=== PATIENT | male | born 1965 | race Caucasian/White ===

== ENCOUNTER 2016-12-19 04:28 | Emergency (ER) | payer MEDICARE, OTHER ==
[~2016-12-19] VITALS: Ht 177.8 cm; Wt 71.9 kg
[~2016-12-19 04:28] MED LIST: BACL20TA PO; BACT800T5 PO; BAYEMIS; BUSP10 PO; CLIN1CAP6 PO; GABA800T PO; GLIP5 PO; GLUCOMETER XX; GLUCOMTESTSTRIPS XX; INSULINSYR2 XX; LEVEMIR SQ; METF-324 PO; MUPI2%T TOPICAL; NORV5TAB PO; NOVOLOGSS SQ
[2016-12-19 04:33] VITALS: BP 144/96; PULSE 122; RESP 24; TEMP 98.5; O2SAT 95
--- NOTE | 2016-12-19 04:52 | PD ---
HPI Chief Complaint: shortness of breath Time Seen by Provider: 04:40 Travel History International Travel<30 days: No Contact w/Intl Traveler<30days: No Traveled to known affect area: No History of Present Illness HPI Yesterday. He used to be a 4 pack a day smoker now down to one fourth pack a day. He denies any fever. He does have a cough productive of clear sputum. He states he ran out of his rescue inhaler. He does not have a nebulizer machine at home. He is followed by the [facility]. He does not get oxygen at home. PFSH Past Medical History Hx Anticoagulant Therapy: No Arthritis: Yes (lower back and bilat knees) Asthma: Yes Autoimmune Disease: No Anxiety: No Depression: Yes (PTSD-service related) Cancer: No Cardiovascular Problems: No Chemotherapy: No Cerebrovascular Accident: Yes (X 2007) Diabetes: Yes Diminished Hearing: No Endocrine: Yes Gastrointestinal Disorders: Yes Genitourinary: No Headaches: Yes Immune Disorder: No Implanted Vascular Access Dvce: No Musculoskeletal: Yes Neurologic: Yes Psychiatric: Yes Reproductive: Yes Respiratory: Yes Immunizations Current: No Past Surgical History Abdominal Surgery: Yes (gallbladder and appendectomy) Appendectomy: Yes Cardiac Surgery: No Cholecystectomy: Yes Ear Surgery: No Endocrine Surgery: No Eye Surgery: No Genitourinary Surgery: No Gynecologic Surgery: No Neurologic Surgery: No Oral Surgery: Yes (extraction) Thoracic Surgery: No Other Surgery: Yes (PILONIDAL CYST, BKA R SIDE) Social History Alcohol Use: Yes (DENIES) Tobacco Use: Yes (1 PPD) Substance Use: No Allergies-Medications (Allergen,Severity, Reaction): Coded Allergies: vancomycin (Unverified Adverse Reaction, Severe, Swelling, 09/24/16) KIDNEYS SHUT DOWN tuberculin, purified protein deriva (Unverified Adverse Reaction, Intermediate, OTHER, 09/24/16) + PPD, HAS GONE THRU MEDICATION REGIMEN SEV TIMES, LAST WAS IN 2012. *MDRO Multi-Drug Resistant Organism (Verified Adverse Reaction, Unknown, ) MRSA (leg wound) 12/2014 Reported Meds & Prescriptions Reported Meds & Active Scripts Active Prednisone 50 Mg Tab 50 Mg PO BID Proair Hfa 8.5 GM Inh (Albuterol Sulfate) 90 Mcg/Act Aer 2 Puff INH Q4-6H PRN 108 mcg/actuation Reported Baclofen 10 Mg Tab 10 Mg PO TID Glipizide 5 Mg Tab 5 Mg PO BIDAC Take 30 minutes before a meal Gabapentin 800 Mg Tab 1,200 Mg PO TID Metformin (Metformin HCl) 1,000 Mg Tab 1,000 Mg PO BIDPC Review of Systems Except as stated in HPI: all other systems reviewed are Neg Physical Exam Narrative GENERAL: The patient is alert, oriented 3 and slight respiratory distress. He smells strongly of tobacco. His vital signs show heart rate of 122, respirations of 24 with oximetry 95%. SKIN: Focused skin assessment warm/dry. HEAD: Atraumatic. Normocephalic. EYES: Pupils equal and round. No scleral icterus. No injection or drainage. ENT: No nasal bleeding or discharge. Mucous membranes pink and moist. NECK: Trachea midline. No JVD. CARDIOVASCULAR: Regular rate and rhythm. No murmur appreciated. RESPIRATORY: No accessory muscle use. Scattered wheezes are heard in all lung vasquez. Breath sounds equal bilaterally. GASTROINTESTINAL: Abdomen soft, non-tender, nondistended. Hepatic and splenic margins not palpable. MUSCULOSKELETAL: No obvious deformities. No clubbing. No cyanosis. No edema. NEUROLOGICAL: Awake and alert. No obvious cranial nerve deficits. Motor grossly within normal limits. Normal speech. PSYCHIATRIC: Appropriate mood and affect; insight and judgment normal. Data Data Last Documented VS Vital Signs Date Time Temp Pulse Resp B/P (MAP) Pulse Ox O2 Delivery O2 Flow Rate FiO2 12/19/16 05:36 98.3 102 24 174/90 (118) 94 Room Air Orders Orders Complete Blood Count With Diff (12/19/16 04:52) Comprehensive Metabolic Panel (12/19/16 04:52) B-Type Natriuretic Peptide (12/19/16 04:52) Troponin I (12/19/16 04:52) Arterial Blood Gas (Abg) (12/19/16 04:52) Iv Access Insert/Monitor (12/19/16 04:52) Electrocardiogram (12/19/16 04:52) Ecg Monitoring (12/19/16 04:52) Oximetry (12/19/16 04:52) Oxygen Administration (12/19/16 04:52) Chest, Pa & Lat (12/19/16 04:52) Sodium Chloride 0.9% Flush (Ns Flush) (12/19/16 05:00) Methylprednisolone So Succ Inj (Solumedr (12/19/16 05:00) Albuterol-Ipratropium Neb (Duoneb Neb) (12/19/16 05:00) Labs Laboratory Tests Test 12/19/16 04:55 12/19/16 05:35 White Blood Count 10.7 TH/MM3 Red Blood Count 4.53 MIL/MM3 Hemoglobin 13.7 GM/DL Hematocrit 40.5 % Mean Corpuscular Volume 89.4 FL Mean Corpuscular Hemoglobin 30.2 PG Mean Corpuscular Hemoglobin Concent 33.8 % Red Cell Distribution Width 12.3 % Platelet Count 331 TH/MM3 Mean Platelet Volume 8.1 FL Neutrophils (%) (Auto) 48.6 % Lymphocytes (%) (Auto) 29.8 % Monocytes (%) (Auto) 4.8 % Eosinophils (%) (Auto) 15.9 % Basophils (%) (Auto) 0.9 % Neutrophils # (Auto) 5.2 TH/MM3 Lymphocytes # (Auto) 3.2 TH/MM3 Monocytes # (Auto) 0.5 TH/MM3 Eosinophils # (Auto) 1.7 TH/MM3 Basophils # (Auto) 0.1 TH/MM3 CBC Comment DIFF FINAL Differential Comment Blood Urea Nitrogen 17 MG/DL Creatinine 1.80 MG/DL Random Glucose 202 MG/DL Total Protein 7.3 GM/DL Albumin 3.2 GM/DL Calcium Level 8.5 MG/DL Alkaline Phosphatase 66 U/L Aspartate Amino Transf (AST/SGOT) 9 U/L Alanine Aminotransferase (ALT/SGPT) 17 U/L Total Bilirubin 0.2 MG/DL Sodium Level 133 MEQ/L Potassium Level 4.8 MEQ/L Chloride Level 102 MEQ/L Carbon Dioxide Level 25.7 MEQ/L Anion Gap 5 MEQ/L Estimat Glomerular Filtration Rate 40 ML/MIN Troponin I LESS THAN 0.02 NG/ML B-Type Natriuretic Peptide 20 PG/ML Blood Gas Puncture Site LT BRACHIAL Blood Gas Patient Temperature 98.6 Blood Gas HCO3 24 mmol/L Blood Gas Base Excess -1.1 mmol/L Blood Gas Oxygen Saturation 87 % Arterial Blood pH 7.35 Arterial Blood Partial Pressure CO2 45 mmHG Arterial Blood Partial Pressure O2 63 mmHG Arterial Blood Oxygen Content 16.5 Vol % Arterial Blood Carboxyhemoglobin 4.5 % Arterial Blood Methemoglobin 1.5 % Blood Gas Hemoglobin 13.5 G/DL Blood Gas Inspired Oxygen 21 % MDM Medical Decision Making Medical Screen Exam Complete: Yes Emergency Medical Condition: Yes Medical Record Reviewed: Yes Interpretation(s) The blood gases show pH 7.35, CO2 45, O2 sat 87% and PO2 63%. The CBC is normal. The complete metabolic profile shows a sodium of 133, cranial 1.8, glucose 202 with a GFR of 40 and albumen 3.2. The BNP is normal and the troponin I is normal. The chest x-ray shows no acute change. Differential Diagnosis COPD with acute exacerbation, pneumonia, bronchitis, hypoxemia Narrative Course The patient initially refused IV and blood gases but then allowed us to do this. The patient has COPD with hypoxemia. We strongly wanted to admit this patient and we told him he needs oxygen but he refuses. The patient states he will follow-up with his primary care physician through the [facility]. Unfortunately, the patient probably lives on these blood gas values. He promises he will quit smoking. Diagnosis Primary Impression: COPD with acute exacerbation Additional Impression: Hypoxemia Additional Instructions: As we discussed, it is time to absolutely quit smoking. Follow-up with your doctor through the [facility]. If you get worse, we offered you admission tonight and we will likely admit you in the future if you are worse. The prednisone is taken one tablet twice daily for 4 days followed by one tablet once daily for 4 days. Med/Other Pt SpecificInfo: Prescription(s) given Scripts Prednisone (Prednisone) 50 Mg Tab 50 MG PO BID for X 4 days than 1 daily X 4 days, #12 TAB 0 Refills Prov: Jayy Eduardo MD 12/19/16 Albuterol 8.5 GM Inh (Proair Hfa 8.5 GM Inh) 90 Mcg/Act Aer 2 PUFF INH Q4-6H Y for SHORTNESS OF BREATH, #1 INHALER 0 Refills 108 mcg/actuation Prov: Jayy Eduardo MD 12/19/16 Disposition: 01 DISCHARGE HOME Condition: Stable Jayy Eduardo MD Dec 19, 2016 04:51
[2016-12-19] MEDS ORDERED: methylPREDNISolone SOD SUCC 125 MG/2 ML VIAL IV PUSH ONE (05:00)
[2016-12-19] MEDS ORDERED: SODIUM CHLORIDE 0.9% FLUSH 10 ML FLUSH IVF PRN (05:00)
[2016-12-19 05:06] LABS: AUTOMATED NEUTROPHIL # 5.2 TH/MM3 (1.8-7.7); BASOPHIL # 0.1 TH/MM3 (0-0.2); BASOPHIL % 0.9 % (0.0-2.0); EOSINOPHIL # 1.7 TH/MM3 (0-0.4); EOSINOPHIL % 15.9 % (0.0-4.0); HEMATOCRIT 40.5 % (39.0-51.0); HEMO FLAGS DIFF FINAL; LYMPH % 29.8 % (9.0-44.0); LYMPHOCYTE # 3.2 TH/MM3 (1.0-4.8); MEAN CELL VOLUME 89.4 FL (80.0-100.0); MEAN CORPUSCULAR HEMOGLOBIN 30.2 PG (27.0-34.0); MEAN CORPUSCULAR HGB CONC 33.8 % (32.0-36.0); MONO % 4.8 % (0.0-8.0); NEUT % 48.6 % (16.0-70.0); PLATELET COUNT 331 TH/MM3 (150-450); RED BLOOD COUNT 4.53 MIL/MM3 (4.50-5.90); RED CELL DISTRIBUTION WIDTH 12.3 % (11.6-17.2); WHITE BLOOD COUNT 10.7 TH/MM3 (4.0-11.0)
[2016-12-19] MEDS: RESP: ALBUTEROL 2.5 MG/IPRATROPIUM 0.5 MG NEB (SCH) INH (05:12)
[2016-12-19 05:15] VITALS: BP 139/78; PULSE 100; RESP 20; O2SAT 98
[2016-12-19 05:17] LABS: CHLORIDE 102 MEQ/L (98-107); POTASSIUM 4.8 MEQ/L (3.5-5.1); SODIUM (NA) 133 MEQ/L (136-145)
[2016-12-19 05:21] LABS: ANION GAP 5 MEQ/L (5-15); BICARBONATE 25.7 MEQ/L (21.0-32.0); BLOOD UREA NITROGEN 17 MG/DL (7-18)
[2016-12-19 05:24] LABS: ALT (GPT) 17 U/L (12-78); AST (GOT) 9 U/L (15-37); GLOMERULAR FILTRATION RATE 40 ML/MIN (>89)
[2016-12-19 05:25] LABS: TOTAL BILIRUBIN ADULT 0.2 MG/DL (0.2-1.0)
[2016-12-19 05:26] LABS: ALKALINE PHOSPHATASE 66 U/L (45-117)
[2016-12-19] MEDS ORDERED: BACL10TA PO (05:35)
[2016-12-19] MEDS ORDERED: GABA800T PO (05:35)
[2016-12-19] MEDS ORDERED: GLIP5TAB8 PO (05:35)
[2016-12-19] MEDS ORDERED: METF1000 PO (05:35)
[2016-12-19 05:36] VITALS: BP 174/90; PULSE 102; RESP 24; TEMP 98.3; O2SAT 94
[2016-12-19 05:42] LABS: BLOOD GAS BASE EXCESS -1.1 mmol/L (-2-2); BLOOD GAS CARBOXYHEMOGLOBIN 4.5 % (0-4); BLOOD GAS HCO3 24 mmol/L (22-26); BLOOD GAS METHEMOGLOBIN 1.5 % (0-2); BLOOD GAS O2 HGB SATURATION 87 % (90-100); BLOOD GAS OXYGEN CONTENT 16.5 Vol % (12.0-20.0); BLOOD GAS PCO2 45 mmHG (38-42); BLOOD GAS PO2 63 mmHG (61-120); BLOOD GAS TOTAL HGB 13.5 G/DL (12.0-16.0); CRITICAL VALUE YES; DRAW SITE LT BRACHIAL; FIO2 21 %; NUMBER OF ARTERIAL PUNCTURES 1; STAT YES; TEMP CORR TO 98.6
[2016-12-19] MEDS ORDERED: ALBUAER3 INH (06:08)
[2016-12-19] MEDS ORDERED: PRED50 PO (06:08)
--- NOTE | 2016-12-19 06:20 | RADRPT ---
EXAM DATE/TIME: 12/19/2016 05:04 [facility] COMPARISON: No previous studies available for comparison. INDICATIONS : Shortness of breath for 8 hours MEDICAL HISTORY : None. SURGICAL HISTORY : None. ENCOUNTER: Initial ACUITY: 1 day PAIN SCORE: 0/10 LOCATION: Bilateral chest FINDINGS: The cardiac silhouette is normal in transverse diameter. There is interstitial disease which may refl ect edema or pneumonia. No pleural effusions are identified. CONCLUSION: 1. Diffuse interstitial edema versus pneumonia Giovanny Lloyd MD on December 19, 2016 at 6:18 Board Certified Radiologist. This report was verified electronically.
[2016-12-19 06:46] VITALS: BP 144/86
--- NOTE | 2016-12-19 13:56 | EKG ---
Date Performed: 12/19/2016 Time Performed: 06:10:02 PTAGE: 51 years EKG: SINUS TACHYCARDIA WITH OCCASIONAL VENTRICULAR PREMATURE COMPLEXES ABNORMAL RHYTHM ECG Marky red to prior electrocardiogram, Premature ventricular contractions are now present PREVIOUS TRACING : 11/07/2014 21.28 DOCTOR: James Davidson Interpretating Date/Time 12/19/2016 13:54:45
== END 2016-12-19 06:51 | disposition home or self-care (01) ==
LOC: PHED 04:28
DX: J44.1 Chronic obstructive pulmonary disease with (acute) exacerbation (principal); R09.02 Hypoxemia; M46.96 Unspecified inflammatory spondylopathy, lumbar region; M13.862 Other specified arthritis, left knee; M13.861 Other specified arthritis, right knee; E11.9 Type 2 diabetes mellitus without complications; Z79.84 Long term (current) use of oral hypoglycemic drugs; F17.210 Nicotine dependence, cigarettes, uncomplicated; Z86.73 Personal history of transient ischemic attack (TIA), and cerebral infarction without residual deficits
CPT/HCPCS: 36600; 71020; 80053; 82805; 83880; 84484; 85025; 93005; 94640; 94664; 96374; 99285; J2930

== ENCOUNTER 2017-01-30 19:44 | Emergency (ER) | payer MEDICARE, OTHER ==
[~2017-01-30] VITALS: Ht 175.3 cm; Wt 65.9 kg
[~2017-01-30 19:44] MED LIST changes: +ALBUAER3 INH; +BACL10TA PO; -BACL20TA PO; -BACT800T5 PO; -BAYEMIS; -BUSP10 PO; -CLIN1CAP6 PO; -GLIP5 PO; +GLIP5TAB8 PO; -GLUCOMETER XX; -GLUCOMTESTSTRIPS XX; -INSULINSYR2 XX; -LEVEMIR SQ; -METF-324 PO; +METF1000 PO; -MUPI2%T TOPICAL; -NORV5TAB PO; -NOVOLOGSS SQ; +PRED50 PO
[2017-01-30 19:57] VITALS: BP 175/95; PULSE 112; RESP 22; TEMP 98.4; O2SAT 88
[2017-01-30 20:00] VITALS: PULSE 112; RESP 22; TEMP 98.4; O2SAT 91
[2017-01-30] MEDS ORDERED: SODIUM CHLORIDE 0.9% FLUSH 10 ML FLUSH IVF PRN (20:00)
[2017-01-30] MEDS ORDERED: methylPREDNISolone SOD SUCC 125 MG/2 ML VIAL IV PUSH ONE (20:00)
--- NOTE | 2017-01-30 20:00 | PD ---
HPI Chief Complaint: short of breath Time Seen by Provider: 19:51 Travel History International Travel<30 days: No Contact w/Intl Traveler<30days: No Traveled to known affect area: No History of Present Illness HPI This patient has history of COPD. He was doing some grinding all working on a wood floor and inhaled some vapors she says. He became short of breath. He is been coughing and wheezing. His nose is been running lately. Denies fever. He is a smoker. He says his dog chewed up his breathing inhaler and he does not have one. Symptoms are severe. No alleviating factors. Symptoms exacerbated by continued smoking. PFSH Past Medical History Hx Anticoagulant Therapy: No Arthritis: Yes (lower back and bilat knees) Asthma: Yes Autoimmune Disease: No Anxiety: No Depression: Yes (PTSD) Cancer: No Cardiovascular Problems: No Chemotherapy: No Cerebrovascular Accident: Yes (-2007) Diabetes: Yes Diminished Hearing: No Endocrine: Yes Gastrointestinal Disorders: Yes Genitourinary: No Headaches: Yes Immune Disorder: No Implanted Vascular Access Dvce: No Musculoskeletal: Yes Neurologic: Yes Psychiatric: Yes Reproductive: Yes Respiratory: Yes Immunizations Current: No Past Surgical History Abdominal Surgery: Yes Appendectomy: Yes Cardiac Surgery: No Cholecystectomy: Yes Ear Surgery: No Endocrine Surgery: No Eye Surgery: No Genitourinary Surgery: No Gynecologic Surgery: No Neurologic Surgery: No Oral Surgery: Yes (extraction) Thoracic Surgery: No Other Surgery: Yes (PILONIDAL CYST, BKA R SIDE) Social History Alcohol Use: Yes (DENIES) Tobacco Use: Yes (3.5 PPD) Substance Use: No Allergies-Medications (Allergen,Severity, Reaction): Coded Allergies: vancomycin (Verified Adverse Reaction, Severe, Swelling, 01/30/17) KIDNEYS SHUT DOWN tuberculin, purified protein deriva (Verified Adverse Reaction, Intermediate, OTHER, 01/30/17) + PPD, HAS GONE THRU MEDICATION REGIMEN SEV TIMES, LAST WAS IN 2012. *MDRO Multi-Drug Resistant Organism (Verified Adverse Reaction, Unknown, 01/30/17) MRSA (leg wound) 12/2014 Reported Meds & Prescriptions Reported Meds & Active Scripts Active Ventolin Hfa 18 GM Inh (Albuterol Sulfate) 90 Mcg/Act Aer 2 Puff INH Q4-6H PRN Prednisone 20 Mg Tab 40 Mg PO DAILY Take 40 mg (2 tablets) daily for 5 days Prednisone 50 Mg Tab 50 Mg PO BID Proair Hfa 8.5 GM Inh (Albuterol Sulfate) 90 Mcg/Act Aer 2 Puff INH Q4-6H PRN 108 mcg/actuation Reported Baclofen 10 Mg Tab 10 Mg PO TID Glipizide 5 Mg Tab 5 Mg PO BIDAC Take 30 minutes before a meal Gabapentin 800 Mg Tab 1,200 Mg PO TID Metformin (Metformin HCl) 1,000 Mg Tab 1,000 Mg PO BIDPC Review of Systems General / Constitutional: No: Fever Eyes: No: Visual changes HENT: Positive: Rhinorrhea, Congestion, No: Headaches Cardiovascular: No: Chest Pain or Discomfort Respiratory: Positive: Cough, Shortness of Breath, Wheezing Gastrointestinal: No: Abdominal Pain Genitourinary: No: Dysuria Musculoskeletal: No: Pain Skin: No Rash Neurologic: No: Weakness Psychiatric: No: Depression Endocrine: No: Polydipsia Hematologic/Lymphatic: No: Easy Bruising Physical Exam Narrative GENERAL: Well-nourished, well-developed patient in respiratory distress. SKIN: Focused skin assessment reveals no rash and nodules. Skin is Warm and dry. HEAD: Atraumatic. Normocephalic. EYES: Pupils equal and round. No scleral icterus. No injection or drainage. ENT: No nasal bleeding or discharge. Mucous membranes pink and moist. NECK: Trachea midline. No JVD. CARDIOVASCULAR: Regular rate and rhythm. No murmur appreciated. RESPIRATORY: Positive accessory muscle use. Diffuse expiratory wheezing and rhonchi . Breath sounds equal bilaterally. GASTROINTESTINAL: Abdomen soft, non-tender, nondistended. Hepatic and splenic margins not palpable. MUSCULOSKELETAL: Has lower extremity amputation and prosthesis. No clubbing. No cyanosis. No edema. NEUROLOGICAL: Awake and alert. No obvious cranial nerve deficits. Motor grossly within normal limits. Normal speech. PSYCHIATRIC: Appropriate mood and affect; insight and judgment poor . Data Data Last Documented VS Vital Signs Date Time Temp Pulse Resp B/P (MAP) Pulse Ox O2 Delivery O2 Flow Rate FiO2 01/30/17 20:07 22 91 Nasal Cannula 2.50 01/30/17 20:00 98.4 112 01/30/17 19:57 175/95 (121) Orders Orders Complete Blood Count With Diff (01/30/17 19:54) Basic Metabolic Panel (Bmp) (01/30/17 19:54) Influenzae A/B Antigen (01/30/17 19:54) Iv Access Insert/Monitor (01/30/17 19:54) Electrocardiogram (01/30/17 19:54) Ecg Monitoring (01/30/17 19:54) Oximetry (01/30/17 19:54) Oxygen Administration (01/30/17 19:54) Chest, Single Ap (01/30/17 19:54) Sodium Chloride 0.9% Flush (Ns Flush) (01/30/17 20:00) Methylprednisolone So Succ Inj (Solumedr (01/30/17 20:00) Albuterol-Ipratropium Neb (Duoneb Neb) (01/30/17 20:00) Labs Laboratory Tests Test 01/30/17 20:00 White Blood Count 12.9 TH/MM3 Red Blood Count 4.84 MIL/MM3 Hemoglobin 14.1 GM/DL Hematocrit 42.9 % Mean Corpuscular Volume 88.5 FL Mean Corpuscular Hemoglobin 29.2 PG Mean Corpuscular Hemoglobin Concent 33.0 % Red Cell Distribution Width 12.1 % Platelet Count 370 TH/MM3 Mean Platelet Volume 8.8 FL Neutrophils (%) (Auto) 62.3 % Lymphocytes (%) (Auto) 17.0 % Monocytes (%) (Auto) 6.7 % Eosinophils (%) (Auto) 11.3 % Basophils (%) (Auto) 2.7 % Neutrophils # (Auto) 8.0 TH/MM3 Lymphocytes # (Auto) 2.2 TH/MM3 Monocytes # (Auto) 0.9 TH/MM3 Eosinophils # (Auto) 1.5 TH/MM3 Basophils # (Auto) 0.3 TH/MM3 CBC Comment DIFF FINAL Differential Comment Blood Urea Nitrogen 15 MG/DL Creatinine 1.50 MG/DL Random Glucose 154 MG/DL Calcium Level 9.0 MG/DL Sodium Level 134 MEQ/L Potassium Level 5.1 MEQ/L Chloride Level 100 MEQ/L Carbon Dioxide Level 27.5 MEQ/L Anion Gap 7 MEQ/L Estimat Glomerular Filtration Rate 49 ML/MIN MDM Medical Decision Making Medical Screen Exam Complete: Yes Emergency Medical Condition: Yes Medical Record Reviewed: Yes Differential Diagnosis Differential diagnosis includes COPD, asthma, pneumonia, bronchitis, PE. Narrative Course I have reviewed the patient's electronic medical record. Patient was here in December 2016 for COPD The patient arrives critically ill. He is hypoxic and dyspneic with saturation of 88 percent on room air IV placed I gave him a series of 3 nebulizer treatments I gave him IV Solu-Medrol Placed him on oxygen Extended cardiac monitoring reveals sinus tachycardia I reviewed his EKG which shows sinus rhythm but no ectopy or ST elevation CBC reasonably normal Metabolic profile shows mild renal insufficiency After the above treatments patient has significantly improved He now has room air saturations in the upper 90s He still has some residual wheeze but much improved No longer critically ill and actually at this point he wants to go home. He has made a rather profound and rapid turnaround He needs to quit smoking I prescribed him an inhaler and 5 days of prednisone Critical Care Narrative Aggregate critical care time was 36 minutes. Time to perform other separately billable procedures was not included in the critical care time. My time did not include minutes spent treating any other patients simultaneously or on activities that did not directly contribute to the patient's treatment. The services I provided to this patient were to treat and/or prevent clinically significant deterioration that could result in: Cardiopulmonary arrest, hypoxemic brain injury, respiratory failure I provided critical care services requiring my management, as noted below: Chart data review, documentation time, medication orders and management, vital sign assessments/reviewing monitor data, ordering and reviewing lab tests, ordering and interpreting/reviewing x-rays and diagnostic studies, care of the patient and discussion of the patient with the admitting physicians. Diagnosis Primary Impression: COPD suggested by initial evaluation Additional Impression: Acute respiratory failure with hypoxia Additional Instructions: The patient was advised to follow up with their physician and return if they worsen. Med/Other Pt SpecificInfo: Prescription(s) given Scripts Albuterol 18 GM Inh (Ventolin Hfa 18 GM Inh) 90 Mcg/Act Aer 2 PUFF INH Q4-6H Y for SHORTNESS OF BREATH, #1 INHALER 0 Refills Prov: Jerome Bonner MD 01/30/17 Prednisone (Prednisone) 20 Mg Tab 40 MG PO DAILY, #10 TAB 0 Refills Take 40 mg (2 tablets) daily for 5 days Prov: Jerome Bonner MD 01/30/17 Disposition: 01 DISCHARGE HOME Condition: Stable Jerome Bonner MD Jan 30, 2017 19:59
[2017-01-30 20:02] VITALS: O2SAT 94
[2017-01-30] MEDS: RESP: ALBUTEROL 2.5 MG/IPRATROPIUM 0.5 MG NEB (SCH) INH ×3 (20:02→20:21)
[2017-01-30 20:15] LABS: BASOPHIL # 0.3 TH/MM3 (0-0.2); BASOPHIL % 2.7 % (0.0-2.0); EOSINOPHIL # 1.5 TH/MM3 (0-0.4); EOSINOPHIL % 11.3 % (0.0-4.0); HEMATOCRIT 42.9 % (39.0-51.0); HEMOGLOBIN 14.1 GM/DL (13.0-17.0); LYMPHOCYTE # 2.2 TH/MM3 (1.0-4.8); MEAN CELL VOLUME 88.5 FL (80.0-100.0); MEAN CORPUSCULAR HEMOGLOBIN 29.2 PG (27.0-34.0); MEAN PLATELET VOLUME 8.8 FL (7.0-11.0); MONO % 6.7 % (0.0-8.0); MONOCYTE # 0.9 TH/MM3 (0-0.9); NEUT % 62.3 % (16.0-70.0); PLATELET COUNT 370 TH/MM3 (150-450); RED BLOOD COUNT 4.84 MIL/MM3 (4.50-5.90); RED CELL DISTRIBUTION WIDTH 12.1 % (11.6-17.2); WHITE BLOOD COUNT 12.9 TH/MM3 (4.0-11.0)
--- NOTE | 2017-01-30 20:27 | RADRPT ---
EXAM DATE/TIME: 01/30/2017 19:59 [facility] COMPARISON: No previous studies available for comparison. INDICATIONS : Short of breath since this afternoon. MEDICAL HISTORY : Diabetes mellitus type 2. Methicillin-resistant Staphylococcus aureus SURGICAL HISTORY : Appendectomy. Cholecystectomy. BELOW KNEE AMPUTATION ENCOUNTER: Initial ACUITY: 1 day PAIN SCORE: 0/10 LOCATION: Bilateral chest FINDINGS: A single view of the chest demonstrates the lungs to be symmetrically aerated without evidence of mas s, infiltrate or effusion. The cardiomediastinal contours are unremarkable. Osseous structures are intact. CONCLUSION: The lungs are clear. Aren Jeong MD on January 30, 2017 at 20:25 Board Certified Radiologist. This report was verified electronically.
[2017-01-30 20:33] LABS: BICARBONATE 27.5 MEQ/L (21.0-32.0)
[2017-01-30 20:36] LABS: CREATININE 1.5 MG/DL (0.60-1.30)
[2017-01-30] MEDS ORDERED: PRED20 PO (20:47)
[2017-01-30] MEDS ORDERED: VENTAER INH (20:47)
[2017-01-30 21:03] VITALS: BP 127/76
--- NOTE | 2017-01-31 11:48 | EKG ---
Date Performed: 01/31/2017 Time Performed: 12:09:43 PTAGE: 51 years EKG: Sinus rhythm POSSIBLE LEFT ATRIAL ENLARGEMENT BORDERLINE ECG Compared to the PREVIOUS TRACING from 12/19/16, no significant change DOCTOR: Adeel Casey Interpretating Date/Time 01/31/2017 11:46:29
== END 2017-01-30 21:11 | disposition home or self-care (01) ==
LOC: PHED 19:44
DX: J44.9 Chronic obstructive pulmonary disease, unspecified (principal); J96.01 Acute respiratory failure with hypoxia; R94.31 Abnormal electrocardiogram [ECG] [EKG]; F32.9 Major depressive disorder, single episode, unspecified; E11.9 Type 2 diabetes mellitus without complications; F43.10 Post-traumatic stress disorder, unspecified; M46.96 Unspecified inflammatory spondylopathy, lumbar region; Z86.73 Personal history of transient ischemic attack (TIA), and cerebral infarction without residual deficits; F17.210 Nicotine dependence, cigarettes, uncomplicated; Z79.84 Long term (current) use of oral hypoglycemic drugs
CPT/HCPCS: 71010; 80048; 85025; 87804; 93005; 94640; 94664; 96374; 99291; J2930

== ENCOUNTER 2017-02-07 20:08 | Emergency (ER) | payer MEDICARE, MEDICAID ==
[~2017-02-07] VITALS: Ht 175.3 cm; Wt 71.1 kg
[~2017-02-07 20:08] MED LIST changes: +PRED20 PO; +VENTAER INH
[2017-02-07 20:10] VITALS: BP 160/90; PULSE 101; RESP 18; TEMP 98.3
--- NOTE | 2017-02-07 20:47 | PD ---
HPI Chief Complaint: Injury Time Seen by Provider: 20:30 Travel History International Travel<30 days: No Contact w/Intl Traveler<30days: No Traveled to known affect area: No History of Present Illness HPI 51-year-old male with pain and bleeding from the stump of his right below-knee amputation. He reports 6 days ago while ambulating with a walker he had a mechanical fall and had direct impact with the stump on the floor. Caused a small laceration which has continued to bleed since injury. He denies fever or chills. Today was the first day that he attempted to wear his prosthetic and noticed it caused him pain prompted his visit to the ER. PFSH Past Medical History Hx Anticoagulant Therapy: No Arthritis: Yes (lower back and bilat knees) Asthma: Yes Autoimmune Disease: No Anxiety: No Depression: Yes (PTSD) Cancer: No Cardiovascular Problems: Yes (HTN) Chemotherapy: No Cerebrovascular Accident: Yes (-2007) Diabetes: Yes Diminished Hearing: No Endocrine: Yes Gastrointestinal Disorders: Yes Genitourinary: No Headaches: Yes Immune Disorder: No Implanted Vascular Access Dvce: No Musculoskeletal: Yes Neurologic: Yes Psychiatric: Yes Reproductive: Yes Respiratory: Yes Immunizations Current: No Past Surgical History Abdominal Surgery: Yes Appendectomy: Yes Cardiac Surgery: No Cholecystectomy: Yes Ear Surgery: No Endocrine Surgery: No Eye Surgery: No Genitourinary Surgery: No Gynecologic Surgery: No Neurologic Surgery: No Oral Surgery: Yes (extraction) Thoracic Surgery: No Other Surgery: Yes (PILONIDAL CYST, BKA R SIDE) Social History Alcohol Use: No (DENIES) Tobacco Use: Yes (3.5 PPD) Substance Use: No Allergies-Medications (Allergen,Severity, Reaction): Coded Allergies: duloxetine (Verified Allergy, Severe, Urinary Freq (Inc/Dec), 02/07/17) vancomycin (Verified Adverse Reaction, Severe, Swelling, 02/07/17) KIDNEYS SHUT DOWN tuberculin, purified protein deriva (Verified Adverse Reaction, Intermediate, OTHER, 02/07/17) + PPD, HAS GONE THRU MEDICATION REGIMEN SEV TIMES, LAST WAS IN 2012. *MDRO Multi-Drug Resistant Organism (Verified Adverse Reaction, Unknown, 02/07/17) MRSA (leg wound) 12/2014 Reported Meds & Prescriptions Reported Meds & Active Scripts Active Ventolin Hfa 18 GM Inh (Albuterol Sulfate) 90 Mcg/Act Aer 2 Puff INH Q4-6H PRN Proair Hfa 8.5 GM Inh (Albuterol Sulfate) 90 Mcg/Act Aer 2 Puff INH Q4-6H PRN 108 mcg/actuation Reported Baclofen 10 Mg Tab 10 Mg PO TID Glipizide 5 Mg Tab 5 Mg PO BIDAC Take 30 minutes before a meal Gabapentin 800 Mg Tab 1,200 Mg PO TID Metformin (Metformin HCl) 1,000 Mg Tab 1,000 Mg PO BIDPC Review of Systems Except as stated in HPI: all other systems reviewed are Neg General / Constitutional: No: Fever Eyes: No: Visual changes HENT: No: Headaches Respiratory: No: Shortness of Breath Gastrointestinal: No: Abdominal Pain Genitourinary: No: Dysuria Physical Exam Narrative GENERAL: Alert male. Nontoxic appearing. SKIN: Focused skin assessment: <1CM superficial laceration to the distal aspect of the right lower extremity. The wound has very minimal bleeding. Mild erythema. Mildly tender. No crepitus, induration, fluctuance. HEAD: Normocephalic. Atraumatic EYES: No injection or drainage. NECK: Supple, trachea midline. CARDIOVASCULAR: Regular rate and rhythm RESPIRATORY: Breath sounds equal bilaterally. No accessory muscle use. GASTROINTESTINAL: Abdomen soft, non-tender, nondistended. MUSCULOSKELETAL: No cyanosis, or edema. Right lower extremity: Amputated below the knee. See skin noted above. No bony tenderness. Data Data Last Documented VS Vital Signs Date Time Temp Pulse Resp B/P (MAP) Pulse Ox O2 Delivery O2 Flow Rate FiO2 02/07/17 20:10 98.3 101 18 160/90 (113) Orders Orders Tibia/Fibula (Ap/Lat) (02/07/17 ) [facility] Medical Decision Making Medical Screen Exam Complete: Yes Emergency Medical Condition: Yes Differential Diagnosis Laceration, Wound infection, tib-fib fracture, osteomyelitis Narrative Course 51 -year-old male here with pain at the site of the laceration to his right lower extremity. He denies fever or chills. On exam he has a small less than 1 cm facial wound to the distal aspect of his right lower extremity at the site of his amputation. He denies fever or chills. No purulent drainage from the wound. Today was the first day he attempted to where his prosthetic caused pain. His vital signs are stable. He is nontoxic-appearing. X-ray right lower extremity: Negative for fracture. NO radiopaque foreign body. No gas in the soft tissue. Patient is a diabetic. His right BKA was a result of gangrenous diabetic foot wounds. Patient will be treated for wound infection with clindamycin. He is instructed to follow-up with his primary doctor for recheck on Friday. He is to return prior if he develops new or worsening symptoms Diagnosis Primary Impression: Laceration of right lower extremity Qualified Codes: S81.811A - Laceration without foreign body, right lower leg, initial encounter Referrals: Primary Care Physician Additional Instructions: Take the antibiotic as prescribed. Watch the area daily with soap and water. Apply clean dry dressing daily. Do not where the prosthetic until the area is not painful. Follow-up with her primary doctor for recheck on Friday. Return if he developed new or worsening symptoms Scripts Clindamycin (Clindamycin) 300 Mg Cap 300 MG PO Q6H for Infection for 10 Days, #40 CAP 0 Refills Prov: Viola Gomez 02/07/17 Disposition: DISCHARGE HOME Condition: Stable Viola Gomez Feb 07, 2017 20:47
--- NOTE | 2017-02-07 20:57 | RADRPT ---
EXAM DATE/TIME: 02/07/2017 20:37 [facility] COMPARISON: TIBIA/FIBULA RIGHT (AP/LAT), January 17, 2015, 16:23. INDICATIONS : Laceration to the bottom of the right tibia/fibula amputation post fall. MEDICAL HISTORY : Diabetes mellitus type II. Chronic obstructive pulmonary disease. Methicillin-resistant Staphylo coccus aureus SURGICAL HISTORY : Colostomy. Appendectomy. Below knee right extremity amputate ENCOUNTER: Initial ACUITY: 1 week PAIN SCORE: 8/10 LOCATION: Right tibia/fibula FINDINGS: Limited AP and lateral views of the right tibia and fibula were obtained including the knee. This dem onstrates that the patient is status post stable below the knee amputation with no acute fracture or malalignment. There is diffuse osteopenia. The knee is preserved. There is no focal soft tissue abnor mality. CONCLUSION: 1. Negative trauma study 2. Stable below the knee amputation. Ramone Genao MD on February 07, 2017 at 20:53 Board Certified Radiologist. This report was verified electronically.
[2017-02-07] MEDS ORDERED: CLIN300C5 PO (21:08)
[2017-02-07] MEDS ORDERED: CLINDAMYCIN 150 MG CAP PO ONE (21:15)
== END 2017-02-07 21:24 | disposition home or self-care (01) ==
LOC: PHEFT 20:08
DX: S81.811A Laceration without foreign body, right lower leg, initial encounter (principal); E11.9 Type 2 diabetes mellitus without complications; I10 Essential (primary) hypertension; J44.9 Chronic obstructive pulmonary disease, unspecified; F32.9 Major depressive disorder, single episode, unspecified; F43.10 Post-traumatic stress disorder, unspecified; F17.200 Nicotine dependence, unspecified, uncomplicated; Z89.511 Acquired absence of right leg below knee; Z86.73 Personal history of transient ischemic attack (TIA), and cerebral infarction without residual deficits
CPT/HCPCS: 73590; 99283

== ENCOUNTER 2017-03-05 22:09 | Inpatient (IN) | payer MEDICARE, OTHER ==
[~2017-03-05] VITALS: Ht 172.7 cm; Wt 65.1 kg
[~2017-03-05 22:09] MED LIST changes: +CLIN300C5 PO; -PRED20 PO; -PRED50 PO
[2017-03-05 22:13] VITALS: BP 161/91; PULSE 130; RESP 22; TEMP 98.8; O2SAT 89
[2017-03-05 22:19] VITALS: BP 130/72; PULSE 128; RESP 22; O2SAT 92
[2017-03-05 22:24] VITALS: BP 130/72; PULSE 126; RESP 22; O2SAT 92
--- NOTE | 2017-03-05 22:28 | PD ---
HPI Chief Complaint: Respiratory Distress Time Seen by Provider: 22:12 Travel History International Travel<30 days: No Contact w/Intl Traveler<30days: No Traveled to known affect area: No History of Present Illness HPI Patient is a 51-year-old male who is a former 4 pack-a-day smoker who now smokes only a pack a day. He comes to the ER because the last few days he's had a progressive cough shortness of breath. He has had a upper respiratory infection with a cold he says. He had only recently been diagnosed as COPD about a month ago when he came to our ER and was diagnosed admitted and started on prednisone. Now he says he does not have an HFA inhaler his albuterol has run out about 2 days ago. He was called the paramedics they found him to be descending to 81% on room air. They gave him 3 DuoNeb's en route 125 Solu- Medrol and he arrives tachycardic and still desatted to about 88% on room air he is put on 2 L nasal cannula holding his satting around 93 he is still tachycardic most likely from all the albuterol he is stable awake alert conversant no signs of distress nontoxic-appearing he has not seen another doctor since he saucy month ago for the same illness. And his albuterol he did not take because he has run out of his HFA [facility] Past Medical History Hx Anticoagulant Therapy: No Arthritis: Yes (lower back and bilat knees) Asthma: Yes Autoimmune Disease: No Anxiety: No Depression: Yes (PTSD) Cancer: No Cardiovascular Problems: Yes (HTN) Chemotherapy: No Cerebrovascular Accident: Yes () Diabetes: Yes Patient Takes Glucophage: Yes Diminished Hearing: No Endocrine: Yes Gastrointestinal Disorders: Yes Genitourinary: No Headaches: Yes Hypertension: Yes Immune Disorder: No Implanted Vascular Access Dvce: No Musculoskeletal: Yes Neurologic: Yes Psychiatric: Yes Reproductive: Yes Respiratory: Yes Immunizations Current: No Past Surgical History Abdominal Surgery: Yes Appendectomy: Yes Cardiac Surgery: No Cholecystectomy: Yes Ear Surgery: No Endocrine Surgery: No Eye Surgery: No Genitourinary Surgery: No Gynecologic Surgery: No Neurologic Surgery: No Oral Surgery: Yes (extraction) Thoracic Surgery: No Other Surgery: Yes (PILONIDAL CYST, BKA R SIDE) Social History Alcohol Use: No Tobacco Use: Yes (1+ PPD) Substance Use: No Allergies-Medications (Allergen,Severity, Reaction): Coded Allergies: duloxetine (Verified Allergy, Severe, Urinary Freq (Inc/Dec), 03/05/17) vancomycin (Verified Adverse Reaction, Severe, Swelling, 03/05/17) KIDNEYS SHUT DOWN tuberculin, purified protein deriva (Verified Adverse Reaction, Intermediate, OTHER, 03/05/17) + PPD, HAS GONE THRU MEDICATION REGIMEN SEV TIMES, LAST WAS IN 2012. *MDRO Multi-Drug Resistant Organism (Verified Adverse Reaction, Unknown, ) MRSA (leg wound) 12/2014 Reported Meds & Prescriptions Reported Meds & Active Scripts Active Ventolin Hfa 18 GM Inh (Albuterol Sulfate) 90 Mcg/Act Aer 2 Puff INH Q4-6H PRN Proair Hfa 8.5 GM Inh (Albuterol Sulfate) 90 Mcg/Act Aer 2 Puff INH Q4-6H PRN 108 mcg/actuation Reported [b/p med] Baclofen 10 Mg Tab 10 Mg PO TID Glipizide 5 Mg Tab 5 Mg PO BIDAC Take 30 minutes before a meal Gabapentin 800 Mg Tab 1,200 Mg PO TID Metformin (Metformin HCl) 1,000 Mg Tab 1,000 Mg PO BIDPC Review of Systems Except as stated in HPI: all other systems reviewed are Neg Cardiovascular: Positive: Chest Pain or Discomfort Respiratory: Positive: Cough, Shortness of Breath, Wheezing Physical Exam Narrative GENERAL: stale smell of cigarettes tachycardic 130 BPM and no Resp distress 2liters sating at 92 % SKIN: Warm and dry. HEAD: Atraumatic. Normocephalic. EYES: Pupils equal and round. No scleral icterus. No injection or drainage. ENT: No nasal bleeding or discharge. Mucous membranes pink and moist. NECK: Trachea midline. No JVD. CARDIOVASCULAR: tachycardic , regular rhythm sinus RESPIRATORY: No accessory muscle use. diffuse wheezing in all vasquez , GASTROINTESTINAL: Abdomen soft, non-tender, nondistended. Hepatic and splenic margins not palpable. MUSCULOSKELETAL: Extremities without clubbing, cyanosis, or edema. No obvious deformities. NEUROLOGICAL: Awake and alert. No obvious cranial nerve deficits. Motor grossly within normal limits. Five out of 5 muscle strength in the arms and legs. Normal speech. PSYCHIATRIC: Appropriate mood and affect; insight and judgment normal. Data Data Last Documented VS Vital Signs Date Time Temp Pulse Resp B/P (MAP) Pulse Ox O2 Delivery O2 Flow Rate FiO2 03/05/17 23:40 111 20 103/72 (82) 93 Nasal Cannula 3.00 03/05/17 22:13 98.8 Orders Orders Arterial Blood Gas (Abg) (03/05/17 22:21) Complete Blood Count With Diff (03/05/17 22:21) Comprehensive Metabolic Panel (03/05/17 22:21) Chest, Pa & Lat (03/05/17 22:21) Ecg Monitoring (03/05/17 22:21) Iv Access Insert/Monitor (03/05/17 22:21) Oximetry (03/05/17 22:21) Oxygen Administration (03/05/17 22:21) Sodium Chloride 0.9% Flush (Ns Flush) (03/05/17 22:30) Levofloxacin 750 Mg Premix Inj (Levaquin (03/05/17 23:15) Place In Observation (03/05/17 ) Vital Signs (Adult) Q4H (03/05/17 23:47) Diet Heart Healthy (03/06/17 Breakfast) Sodium Chloride 0.9% Flush (Ns Flush) (03/06/17 09:00) Sodium Chloride 0.9% Flush (Ns Flush) (03/06/17 00:00) Albuterol-Ipratropium Neb (Duoneb Neb) (03/06/17 04:00) Methylprednisolone So Succ Inj (Solumedr (03/06/17 00:00) Basic Metabolic Panel (Bmp) (03/06/17 06:00) Complete Blood Count With Diff (03/06/17 06:00) Resp Pulse Oximetry (03/05/17 ) Resp Oxygen Vivek C Titrat 1-4 L (03/05/17 ) Copd Educator Consult (03/05/17 ) Heparin Inj (Heparin Inj) (03/06/17 00:00) Bedside Glucose NADIA.CSUGAR (03/05/17 23:47) Special Diet Instructions (03/05/17 23:47) Blood Glucose Goal (Criteria) (03/05/17 23:47) Hypoglycemia 70 Mg/Dl Or < (03/05/17 23:47) Notify Dr: Other (03/05/17 23:47) Dextrose 50% In Teressa (Vial) Inj (D50w (Vi (03/06/17 00:00) Glucagon Inj (Glucagon Inj) (03/06/17 00:00) Insulin Aspart Supplemtl Scale (Novolog (03/06/17 08:00) Baclofen (Lioresal) (03/06/17 09:00) Gabapentin (Neurontin) (03/06/17 09:00) Albuterol-Ipratropium Neb (Duoneb Neb) (03/06/17 00:15) Admit Order (Ed Use Only) (03/06/17 00:11) Labs Laboratory Tests Test 03/05/17 22:20 03/05/17 22:32 White Blood Count 11.7 TH/MM3 Red Blood Count 4.80 MIL/MM3 Hemoglobin 13.8 GM/DL Hematocrit 43.0 % Mean Corpuscular Volume 89.5 FL Mean Corpuscular Hemoglobin 28.8 PG Mean Corpuscular Hemoglobin Concent 32.2 % Red Cell Distribution Width 12.2 % Platelet Count 315 TH/MM3 Mean Platelet Volume 8.8 FL Neutrophils (%) (Auto) 39.8 % Lymphocytes (%) (Auto) 40.0 % Monocytes (%) (Auto) 8.0 % Eosinophils (%) (Auto) 11.3 % Basophils (%) (Auto) 0.9 % Neutrophils # (Auto) 4.7 TH/MM3 Lymphocytes # (Auto) 4.7 TH/MM3 Monocytes # (Auto) 0.9 TH/MM3 Eosinophils # (Auto) 1.3 TH/MM3 Basophils # (Auto) 0.1 TH/MM3 CBC Comment DIFF FINAL Differential Comment Blood Urea Nitrogen 22 MG/DL Creatinine 2.00 MG/DL Random Glucose 129 MG/DL Total Protein 7.0 GM/DL Albumin 3.1 GM/DL Calcium Level 8.8 MG/DL Alkaline Phosphatase 67 U/L Aspartate Amino Transf (AST/SGOT) 14 U/L Alanine Aminotransferase (ALT/SGPT) 14 U/L Total Bilirubin 0.3 MG/DL Sodium Level 139 MEQ/L Potassium Level 4.8 MEQ/L Chloride Level 105 MEQ/L Carbon Dioxide Level 29.1 MEQ/L Anion Gap 5 MEQ/L Estimat Glomerular Filtration Rate 35 ML/MIN Blood Gas Puncture Site RT BRACHIAL Blood Gas Patient Temperature 98.6 Blood Gas HCO3 26 mmol/L Blood Gas Base Excess 1.4 mmol/L Blood Gas Oxygen Saturation 80 % Arterial Blood pH 7.38 Arterial Blood Partial Pressure CO2 45 mmHG Arterial Blood Partial Pressure O2 49 mmHG Arterial Blood Oxygen Content 15.8 Vol % Arterial Blood Carboxyhemoglobin 5.2 % Arterial Blood Methemoglobin 1.1 % Blood Gas Hemoglobin 14.0 G/DL Blood Gas Inspired Oxygen 21 % MDM Medical Decision Making Medical Screen Exam Complete: Yes Emergency Medical Condition: Yes Differential Diagnosis COPD exacerbation vs PNA vs bronchitis vs rreactive airway to URI viral other Narrative Course ABG shows CO2 45 not retaining significantly , 3 Liters nasal and levaquin IVPB an d steroids given in EMS admit to [facility] Diagnosis Primary Impression: COPD exacerbation Admitting Information Admitting Physician Requests: Observation Ric Tse MD Mar 05, 2017 22:28
[2017-03-05] MEDS ORDERED: SODIUM CHLORIDE 0.9% FLUSH 10 ML FLUSH IVF PRN (22:30)
[2017-03-05 22:37] LABS: AUTOMATED NEUTROPHIL # 4.7 TH/MM3 (1.8-7.7); BASOPHIL # 0.1 TH/MM3 (0-0.2); BASOPHIL % 0.9 % (0.0-2.0); EOSINOPHIL # 1.3 TH/MM3 (0-0.4); EOSINOPHIL % 11.3 % (0.0-4.0); HEMOGLOBIN 13.8 GM/DL (13.0-17.0); LYMPHOCYTE # 4.7 TH/MM3 (1.0-4.8); MEAN CELL VOLUME 89.5 FL (80.0-100.0); MEAN CORPUSCULAR HEMOGLOBIN 28.8 PG (27.0-34.0); MEAN CORPUSCULAR HGB CONC 32.2 % (32.0-36.0); MEAN PLATELET VOLUME 8.8 FL (7.0-11.0); MONOCYTE # 0.9 TH/MM3 (0-0.9); NEUT % 39.8 % (16.0-70.0); PLATELET COUNT 315 TH/MM3 (150-450); RED CELL DISTRIBUTION WIDTH 12.2 % (11.6-17.2); WHITE BLOOD COUNT 11.7 TH/MM3 (4.0-11.0)
[2017-03-05 22:48] LABS: CHLORIDE 105 MEQ/L (98-107); SODIUM (NA) 139 MEQ/L (136-145)
[2017-03-05 22:52] LABS: ALBUMIN 3.1 GM/DL (3.4-5.0); BICARBONATE 29.1 MEQ/L (21.0-32.0); BLOOD UREA NITROGEN 22 MG/DL (7-18); CALCIUM 8.8 MG/DL (8.5-10.1); GLUCOSE,RANDOM 129 MG/DL (74-106)
[2017-03-05 22:55] LABS: ALT (GPT) 14 U/L (12-78); AST (GOT) 14 U/L (15-37); GLOMERULAR FILTRATION RATE 35 ML/MIN (>89)
[2017-03-05 22:57] LABS: TOTAL BILIRUBIN ADULT 0.3 MG/DL (0.2-1.0)
--- NOTE | 2017-03-05 22:57 | RADRPT ---
EXAM DATE/TIME: 03/05/2017 22:24 [facility] COMPARISON: CHEST PA & LAT, December 19, 2016, 5:04. INDICATIONS : Shortness of breath. MEDICAL HISTORY : Diabetes mellitus type 2. Methicillin-resistant Staphylococcus aureus. Asthma. SURGICAL HISTORY : Appendectomy. Cholecystectomy. ENCOUNTER: Initial ACUITY: 1 day PAIN SCORE: 0/10 LOCATION: Bilateral chest FINDINGS: PA and lateral views of the chest demonstrate the lungs to be symmetrically aerated without evidence of mass, infiltrate or effusion. Subsegmental basilar opacity. The cardiomediastinal contours are un remarkable. Osseous structures are intact. CONCLUSION: 1. Subsegmental basilar atelectasis or scarring. No change from December 2016. Wiley Parekh MD on March 05, 2017 at 22:54 Board Certified Radiologist. This report was verified electronically.
[2017-03-05 22:58] LABS: ALKALINE PHOSPHATASE 67 U/L (45-117)
[2017-03-05] MEDS ORDERED: LEVOFLOXACIN 750 MG PREMIX INJ 150 ML IV ONE (23:15)
[2017-03-05 23:40] VITALS: BP 103/72; PULSE 111; RESP 20; O2SAT 93
[2017-03-06] VITALS (9 sets, daily range): BP systolic 129–157; BP diastolic 67–82; PULSE 109–121; RESP 20–22; TEMP 96.7–98.4; O2SAT 91–95
[2017-03-06] MEDS ORDERED: DEXTROSE 50% IN WATER 50 ML VIAL(D50) IV PUSH PRN
[2017-03-06] MEDS ORDERED: SODIUM CHLORIDE 0.9% FLUSH 10 ML FLUSH IV FLUSH PRN
[2017-03-06] MEDS ORDERED: GLUCAGON 1 MG/ML VIAL OTHER PRN
[2017-03-06] MEDS ORDERED: RESP: ALBUTEROL 2.5 MG/IPRATROPIUM 0.5 MG NEB (PRN) NEB (00:15)
[2017-03-06] MEDS: methylPREDNISolone SOD SUCC 125 MG/2 ML VIAL IV PUSH SCH ×4 (00:32→22:12)
[2017-03-06] MEDS: HEPARIN SODIUM - SQ 10,000 UNITS/ML VIAL SQ SCH ×3 (00:33→17:10)
[2017-03-06] MEDS ORDERED: b/p med (01:35)
[2017-03-06] MEDS: RESP: ALBUTEROL 2.5 MG/IPRATROPIUM 0.5 MG NEB (SCH) INH ×4 (02:51→20:31)
[2017-03-06 06:36] LABS: BASOPHIL % 0.3 % (0.0-2.0); EOSINOPHIL % 0.1 % (0.0-4.0); HEMATOCRIT 38.8 % (39.0-51.0); HEMOGLOBIN 12.9 GM/DL (13.0-17.0); LYMPH % 7.5 % (9.0-44.0); LYMPHOCYTE # 0.5 TH/MM3 (1.0-4.8); MEAN CELL VOLUME 89.7 FL (80.0-100.0); MEAN CORPUSCULAR HEMOGLOBIN 29.8 PG (27.0-34.0); MEAN CORPUSCULAR HGB CONC 33.2 % (32.0-36.0); MEAN PLATELET VOLUME 9.1 FL (7.0-11.0); MONO % 0.7 % (0.0-8.0); NEUT % 91.4 % (16.0-70.0); PLATELET COUNT 267 TH/MM3 (150-450); RED BLOOD COUNT 4.32 MIL/MM3 (4.50-5.90); RED CELL DISTRIBUTION WIDTH 12.1 % (11.6-17.2); WHITE BLOOD COUNT 6.5 TH/MM3 (4.0-11.0)
[2017-03-06 06:49] LABS: CALCIUM 8.4 MG/DL (8.5-10.1)
[2017-03-06 06:50] LABS: BICARBONATE 22.5 MEQ/L (21.0-32.0)
[2017-03-06 06:55] LABS: CREATININE 2.3 MG/DL (0.60-1.30)
[2017-03-06] MEDS: INSULIN ASPART SUPPLEMENTAL SCALE SQ SCH ×4 (08:00→22:12)
[2017-03-06] MEDS: SODIUM CHLOR 0.9% 1000 ML INJ 1,000 ML IV SCH ×2 (10:00→20:14)
[2017-03-06] MEDS ORDERED: SODIUM CHLORID 0.9% 500 ML INJ 500 ML IV ONE (10:00)
[2017-03-06] MEDS: SODIUM CHLORIDE 0.9% FLUSH 10 ML FLUSH IV FLUSH SCH ×2 (10:36→21:00)
[2017-03-06] MEDS: BACLOFEN 10 MG TAB PO SCH ×3 (10:37→17:11)
[2017-03-06] MEDS: GABAPENTIN 400 MG CAP PO SCH ×2 (10:37→22:10)
--- NOTE | 2017-03-06 11:21 | RADRPT ---
EXAM DATE/TIME: 03/06/2017 10:14 [facility] COMPARISON: No previous studies available for comparison. INDICATIONS : Increased lab values. MEDICAL HISTORY : Hypercholesterolemia. Chronic obstructive pulmonary disease. Hypertension. Asthma. Arthritis. Diabete s. MRSA. SURGICAL HISTORY : Appendectomy. Cholecystectomy. Right below knee amputation. ENCOUNTER: Initial ACUITY: 1 day PAIN SCORE: 10 LOCATION: Bilateral flank MEASUREMENTS: RIGHT KIDNEY: 10.7 x 6.2 x 5.7 cm LEFT KIDNEY: 11.0 x 5.6 x 5.7 cm FINDINGS: RIGHT KIDNEY: Mildly diffusely echogenic renal cortex suggesting medical renal disease. No evidence hydronephrosis. No evidence of mass. LEFT KIDNEY: Mildly diffusely echogenic renal cortex suggesting medical renal disease. No evidence of hydronephros is. No evidence of mass. BLADDER: Post void residual volume of the urinary bladder is 250 cc. CONCLUSION: 1. Echogenic kidneys suggesting medical renal disease. 2. 250 cc postvoid residual in the bladder. Golden Grant MD on March 06, 2017 at 11:16 Board Certified Radiologist. This report was verified electronically.
--- NOTE | 2017-03-06 11:33 | HHI.HP ---
HPI Service [facility] Primary Care Physician [facility] Admission Diagnosis COPD exacerbation Diagnoses: Travel History International Travel<30 Days: No Contact w/Intl Traveler <30 Da: No Traveled to Known Affected Are: No History of Present Illness 51-year-old male with a history of diabetes, stroke, ulcer myelitis with indications, COPD who presents with acute onset shortness of breath last night. He reports running out of his inhaler about a week ago, reports a one-week history of cough productive of clear sputum. Chest x-ray shows chronic changes , however no acute findings. Patient says his shortness is gone and he feels like he is breathing normally today. Denies any chest pain. Denies any nausea , vomiting, fevers, chills. He denies any dysuria or hematuria. He does say he feels like he might be dehydrated. Has not been drinking much fluids over the past week. Review of Systems Except as stated in HPI: all other systems reviewed are Neg Past Family Social History Past Medical History Diabetes mellitus History of osteomyelitis requiring right below the knee amputation. Amputation of the left lower extremity fourth digit. History of CVA History of hyperlipidemia Tobacco use. COPD Past Surgical History Right BKA Left foot fourth digit amputation. Appendectomy in Cholecystectomy Pilonidal cyst drainage Allergies: Coded Allergies: duloxetine (Verified Allergy, Severe, Urinary Freq (Inc/Dec), 03/05/17) vancomycin (Verified Adverse Reaction, Severe, Swelling, 03/05/17) KIDNEYS SHUT DOWN tuberculin, purified protein deriva (Verified Adverse Reaction, Intermediate, OTHER, 03/05/17) + PPD, HAS GONE THRU MEDICATION REGIMEN SEV TIMES, LAST WAS IN 2012. *MDRO Multi-Drug Resistant Organism (Verified Adverse Reaction, Unknown, ) MRSA (leg wound) 12/2014 Family History adopted Social History Patient says he smokes about 1 pack per day since he was 16 years old. Denies any alcohol. Denies illicit drugs. Physical Exam Vital Signs Vital Signs Date Time Temp Pulse Resp B/P (MAP) Pulse Ox O2 Delivery O2 Flow Rate FiO2 03/06/17 11:14 94 Nasal Cannula 3.00 03/06/17 07:50 98.1 109 20 157/78 (104) 95 03/06/17 01:32 94 Nasal Cannula 3.00 03/06/17 01:31 98.4 120 22 138/81 (100) 94 03/06/17 00:56 111 20 129/82 (98) 94 3.00 03/06/17 00:25 95 Nasal Cannula 3.00 03/05/17 23:40 111 20 103/72 (82) 93 Nasal Cannula 3.00 03/05/17 22:24 92 Nasal Cannula 3.00 03/05/17 22:24 126 22 130/72 (91) 92 Nasal Cannula 3.00 03/05/17 22:19 128 22 130/72 (91) 92 Nasal Cannula 3.00 03/05/17 22:19 126 22 92 Nasal Cannula 3.00 03/05/17 22:13 98.8 130 22 161/91 (114) 89 Physical Exam GENERAL: This is a well-nourished, well-developed patient, appears somewhat short of breath. Alert and oriented 3. SKIN: No rashes, ecchymoses or lesions. Cool and dry. HEAD: Atraumatic. Normocephalic. No temporal or scalp tenderness. EYES: Pupils equal round and reactive. Extraocular motions intact. No scleral icterus. No injection or drainage. ENT: Nose without bleeding, purulent drainage or septal hematoma. Throat without erythema, tonsillar hypertrophy or exudate. Uvula midline. Airway patent. NECK: Trachea midline. No JVD or lymphadenopathy. Supple, nontender, no meningeal signs. CARDIOVASCULAR: Regular rate and rhythm without murmurs, gallops, or rubs. RESPIRATORY: Clear to auscultation. Breath sounds equal bilaterally. He shouldn 't has wheezing laterally, with dry crackles in the bases. GASTROINTESTINAL: Abdomen soft, non-tender, nondistended. No hepato-splenomegaly , or palpable masses. No guarding. MUSCULOSKELETAL: Extremities without clubbing, cyanosis, or edema. No joint tenderness, effusion, or edema noted. No calf tenderness. Negative Homans sign bilaterally. NEUROLOGICAL: Awake and alert. Cranial nerves II through XII intact. Motor and sensory grossly within normal limits. Five out of 5 muscle strength in all muscle groups. Normal speech. Laboratory Laboratory Tests Test 03/05/17 22:20 03/05/17 22:32 03/06/17 05:55 White Blood Count 11.7 6.5 Red Blood Count 4.80 4.32 Hemoglobin 13.8 12.9 Hematocrit 43.0 38.8 Mean Corpuscular Volume 89.5 89.7 Mean Corpuscular Hemoglobin 28.8 29.8 Mean Corpuscular Hemoglobin Concent 32.2 33.2 Red Cell Distribution Width 12.2 12.1 Platelet Count 315 267 Mean Platelet Volume 8.8 9.1 Neutrophils (%) (Auto) 39.8 91.4 Lymphocytes (%) (Auto) 40.0 7.5 Monocytes (%) (Auto) 8.0 0.7 Eosinophils (%) (Auto) 11.3 0.1 Basophils (%) (Auto) 0.9 0.3 Neutrophils # (Auto) 4.7 6.0 Lymphocytes # (Auto) 4.7 0.5 Monocytes # (Auto) 0.9 0.0 Eosinophils # (Auto) 1.3 0.0 Basophils # (Auto) 0.1 0.0 CBC Comment DIFF FINAL DIFF FINAL Differential Comment Blood Urea Nitrogen 22 34 Creatinine 2.00 2.30 Random Glucose 129 391 Total Protein 7.0 Albumin 3.1 Calcium Level 8.8 8.4 Alkaline Phosphatase 67 Aspartate Amino Transf (AST/SGOT) 14 Alanine Aminotransferase (ALT/SGPT) 14 Total Bilirubin 0.3 Sodium Level 139 136 Potassium Level 4.8 5.3 Chloride Level 105 103 Carbon Dioxide Level 29.1 22.5 Anion Gap 5 11 Estimat Glomerular Filtration Rate 35 30 Blood Gas Puncture Site RT BRACHIAL Blood Gas Patient Temperature 98.6 Blood Gas HCO3 26 Blood Gas Base Excess 1.4 Blood Gas Oxygen Saturation 80 Arterial Blood pH 7.38 Arterial Blood Partial Pressure CO2 45 Arterial Blood Partial Pressure O2 49 Arterial Blood Oxygen Content 15.8 Arterial Blood Carboxyhemoglobin 5.2 Arterial Blood Methemoglobin 1.1 Blood Gas Hemoglobin 14.0 Blood Gas Inspired Oxygen 21 Result Diagram: 03/06/17 0555 03/06/17 0555 Caprini VTE Risk Assessment Caprini VTE Risk Assessment: No/Low Risk (score <= 1) Caprini Risk Assessment Model Point Value = 1 Point Value = 2 Point Value = 3 Point Value = 5 Age 41-60 Minor surgery BMI > 25 kg/m2 Swollen legs Varicose veins or History of unexplained or recurrent spontaneous Oral contraceptives or hormone replacement Sepsis (< 1 month) Serious lung disease, including pneumonia (< 1 month) Abnormal pulmonary function Acute myocardial infarction Congestive heart failure (< 1 month) History of inflammatory bowel disease Medical patient at bed rest Age 61-74 Arthroscopic surgery Major open surgery (> 45 min) Laparoscopic surgery (> 45 min) Malignancy Confined to bed (> 72 hours) Immobilizing plaster cast Central venous access Age >= 75 History of VTE Family history of VTE Factor V Leiden Prothrombin [id number] Lupus anticoagulant Anticardiolipin antibodies Elevated serum homocysteine Heparin-induced thrombocytopenia Other congenital or acquired thrombophilia Stroke (< 1 month) Elective arthroplasty Hip, pelvis, or leg fracture Acute spinal cord injury (< 1 month) Prophylaxis Regimen Total Risk Factor Score Risk Level Prophylaxis Regimen 0-1 Low Early ambulation 2 Moderate Order ONE of the following: *Sequential Compression Device (SCD) *Heparin 5000 units SQ BID 3-4 Higher Order ONE of the following medications: *Heparin 5000 units SQ TID *Enoxaparin/Lovenox 40 mg SQ daily (WT < 150 kg, CrCl > 30 mL/min) *Enoxaparin/Lovenox 30 mg SQ daily (WT < 150 kg, CrCl > 10-29 mL/min) *Enoxaparin/Lovenox 30 mg SQ BID (WT < 150 kg, CrCl > 30 mL/min) AND/OR *Sequential Compression Device (SCD) 5 or more Highest Order ONE of the following medications: *Heparin 5000 units SQ TID (Preferred with Epidurals) *Enoxaparin/Lovenox 40 mg SQ daily (WT < 150 kg, CrCl > 30 mL/min) *Enoxaparin/Lovenox 30 mg SQ daily (WT < 150 kg, CrCl > 10-29 mL/min) *Enoxaparin/Lovenox 30 mg SQ BID (WT < 150 kg, CrCl > 30 mL/min) AND *Sequential Compression Device (SCD) Assessment and Plan Assessment and Plan //COPD exacerbation //Hypoxemic respiratory failure. -Reviewed ABG from admission with O2 of 49 on room air. -Chest x-ray with no acute findings -Likely exacerbated by running out of inhalers a week ago. Continue on steroids, DuoNeb nebs. -Taper steroids //Acute kidney injury. Creatinine 1.3 today from baseline of 1.5. -Likely secondary to dehydration. -Order urinalysis, renal ultrasound. Start on IV fluids. Continue to monitor. //Diabetes mellitus = Glucose elevated in the 300s yet -Expect to improve on diabetic diet, insulin sliding scale. //Diabetic neuropathy. -Continue on decreased dose of gabapentin due to kidney failure. Discussed Condition With Patient, nurse Physician Certification 2 Midnight Certification Type: Admission for Inpatient Services Order for Inpatient Services The services are ordered in accordance with Medicare regulations or non- Medicare payer requirements, as applicable. In the case of services not specified as inpatient-only, they are appropriately provided as inpatient services in accordance with the 2-midnight benchmark. Estimated LOS (days): 2 days is the estimated time the patient will need to remain in the hospital, assuming treatment plan goals are met and no additional complications. Post-Hospital Plan: Bradley Cristobal Arreola MD Mar 06, 2017 11:33
[2017-03-06] MEDS: INSULIN DETEMIR 100 UNITS/ML VIAL SQ SCH ×2 (12:00→22:11)
[2017-03-06 16:29] LABS: HEMOGLOBIN A1C 7.7 % (4.3-6.0)
[2017-03-06] MEDS ORDERED: ACETAMINOPHEN 325 MG TAB PO PRN (22:15)
[2017-03-06 23:29] LABS: BILIRUBIN, URINE NEG (NEG); BLOOD, URINE NEG (NEG); GLUCOSE,URINE 1000 OR GREATER mg/dL (NEG); KETONE, URINE NEG (NEG); NITRITE,URINE NEG (NEG); URINE LEUKOCYTE ESTERASE NEG (NEG)
[2017-03-06 23:32] LABS: URINE COLOR STRAW (YELLW/STRAW)
[2017-03-06 23:33] LABS: RBC, URINE 0-2 /hpf (0-3); SQUAMOUS EPITHELIAL CELL URINE 0-5 /hpf (0-5); WBC, URINE 0-2 /hpf (0-5)
[2017-03-07] VITALS: BP 131/63; PULSE 122; RESP 20; TEMP 98.6; O2SAT 93
[2017-03-07] MEDS: HEPARIN SODIUM - SQ 10,000 UNITS/ML VIAL SQ SCH ×2 (00:24→09:41)
[2017-03-07] MEDS ORDERED: traMADol/ACETAMINOPHEN 37.5/325 1 TAB PO ONE (02:00)
[2017-03-07] MEDS: RESP: ALBUTEROL 2.5 MG/IPRATROPIUM 0.5 MG NEB (SCH) INH ×2 (03:12→10:34)
[2017-03-07] MEDS: methylPREDNISolone SOD SUCC 125 MG/2 ML VIAL IV PUSH SCH (05:20)
[2017-03-07] MEDS: SODIUM CHLOR 0.9% 1000 ML INJ 1,000 ML IV SCH (05:20)
[2017-03-07 06:30] LABS: BASOPHIL % 0.1 % (0.0-2.0); HEMATOCRIT 34.8 % (39.0-51.0); HEMOGLOBIN 11.4 GM/DL (13.0-17.0); LYMPH % 4.6 % (9.0-44.0); LYMPHOCYTE # 0.7 TH/MM3 (1.0-4.8); MEAN CELL VOLUME 88.9 FL (80.0-100.0); MEAN CORPUSCULAR HEMOGLOBIN 29.2 PG (27.0-34.0); MEAN CORPUSCULAR HGB CONC 32.8 % (32.0-36.0); MEAN PLATELET VOLUME 8.8 FL (7.0-11.0); MONO % 1.6 % (0.0-8.0); MONOCYTE # 0.3 TH/MM3 (0-0.9); NEUT % 93.7 % (16.0-70.0); PLATELET COUNT 292 TH/MM3 (150-450); RED BLOOD COUNT 3.91 MIL/MM3 (4.50-5.90); RED CELL DISTRIBUTION WIDTH 12.4 % (11.6-17.2)
[2017-03-07 06:40] LABS: CALCIUM 8.5 MG/DL (8.5-10.1)
[2017-03-07 06:41] LABS: ALBUMIN 2.7 GM/DL (3.4-5.0); BICARBONATE 25.2 MEQ/L (21.0-32.0); MAGNESIUM 2.1 MG/DL (1.5-2.5)
[2017-03-07 06:44] LABS: CREATININE 1.8 MG/DL (0.60-1.30); PHOSPHORUS 2.5 MG/DL (2.5-4.9)
[2017-03-07 08:00] VITALS: BP 140/69; PULSE 105; RESP 16; TEMP 98.9; O2SAT 91
[2017-03-07] MEDS: INSULIN ASPART SUPPLEMENTAL SCALE SQ SCH (08:00)
[2017-03-07] MEDS: INSULIN DETEMIR 100 UNITS/ML VIAL SQ SCH (09:00)
[2017-03-07] MEDS: SODIUM CHLORIDE 0.9% FLUSH 10 ML FLUSH IV FLUSH SCH (09:41)
[2017-03-07] MEDS: GABAPENTIN 400 MG CAP PO SCH (09:41)
[2017-03-07] MEDS: BACLOFEN 10 MG TAB PO SCH (09:41)
[2017-03-07 09:57] LABS: CREATININE, RANDOM URINE 36.4 MG/DL
--- NOTE | 2017-03-07 10:09 | HHI.PR ---
Subjective Remarks Follow-up COPD exacerbation and uncontrolled diabetes. Patient seen and examined, sitting up in bed in no acute complaints. States he feels much better. On room air with vital signs stable. Eating well, denies any abdominal pain, nausea or vomiting. Has been ambulating with no shortness of breath. Lung sounds are clear. Patient is noncompliant with diabetic teaching and diabetic diet. Blood sugar is elevated. Objective Vitals Vital Signs Date Time Temp Pulse Resp B/P (MAP) Pulse Ox O2 Delivery O2 Flow Rate FiO2 03/07/17 00:00 98.6 122 20 131/63 (85) 93 03/06/17 20:33 93 Nasal Cannula 2.00 03/06/17 20:00 97.0 115 20 146/67 (93) 92 03/06/17 20:00 92 Nasal Cannula 2.00 03/06/17 15:50 96.7 121 20 136/76 (96) 93 03/06/17 14:53 Nasal Cannula 3.00 03/06/17 11:50 96.7 111 20 149/72 (97) 91 03/06/17 11:14 94 Nasal Cannula 3.00 I/O 03/06/17 03/06/17 03/06/17 03/07/17 03/07/17 03/07/17 07:00 15:00 23:00 07:00 15:00 23:00 Intake Total 390 ml 1882 ml 947 ml Output Total 500 ml Balance 390 ml 1882 ml 447 ml Intake Oral 240 ml 600 ml 240 ml IV Total 150 ml 1282 ml 707 ml Output Urine Total 500 ml # Voids 2 7 # Bowel Movements 0 2 0 Result Diagram: 03/07/17 0538 03/07/17 0538 Imaging Last Impressions Renal Ultrasound 03/06/17 0000 Signed Impressions: Service Date/Time: February 10:14 - CONCLUSION: 1. Echogenic kidneys suggesting medical renal disease. 2. 250 cc postvoid residual in the bladder. Golden Grant MD Chest X-Ray 03/05/172220 Signed Impressions: Service Date/Time: Sunday, March 05, 2017 22:24 - CONCLUSION: 1. Subsegmental basilar atelectasis or scarring. No change from December 2016. Wiley Parekh MD Objective Remarks GENERAL: Well-nourished, well-developed patient in NAD. SKIN: Warm and dry. No rash. HEAD: Normocephalic. Atraumatic. EYES: Pupils equal and round. No scleral icterus. No injection or drainage. ENT: No nasal bleeding or discharge. Mucous membranes pink and moist. NECK: Supple. Trachea midline. CARDIOVASCULAR: Regular rate and rhythm. S1, S2 noted. No murmur appreciated. RESPIRATORY: No accessory muscle use. Clear to auscultation. Breath sounds equal bilaterally. GASTROINTESTINAL: Abdomen soft, non-tender, nondistended. Normoactive bowel sounds x4. MUSCULOSKELETAL: Right below the knee amputation. NEUROLOGICAL: Awake and alert. No obvious cranial nerve deficits. Motor grossly within normal limits. 5/5 muscle strength in bilateral upper and lower extremities. Normal speech. PSYCHIATRIC: Appropriate mood and affect; insight and judgment normal. A/P Assessment and Plan COPD with exacerbation Hypoxemic respiratory failure. -Reviewed ABG from admission with O2 of 49 on room air. -Chest x-ray with no acute findings -Likely exacerbated by running out of inhalers a week ago. -On steroids, DuoNeb nebs. -Will discharge home with steroids Acute kidney injury. Creatinine 1.8, baseline is 1.5 -Likely secondary to dehydration. -UA negative. Renal ultrasound showing echogenic kidneys suggesting medical renal disease. -Encourage by mouth intake Diabetes mellitus - Glucose elevated to 500 overnight secondary to noncompliance with diabetic diet and steroids - Expect to improve on diabetic diet, insulin sliding scale. - peer educator in yesterday to see patient. Patient is still noncompliant with diabetic diet. - Encouraged compliance follow-up with [facility] upon discharge. Hemoglobin A1c 7.7. Diabetic neuropathy -Continue on decreased dose of gabapentin due to kidney failure. Discharge Planning Will discharge today. Judith Dillon Mar 07, 2017 10:09
[2017-03-07 10:35] VITALS: O2SAT 91
--- NOTE | 2017-03-07 10:50 | HHI.DCPOC ---
Discharge Care Plan Diagnosis: (1) COPD exacerbation (2) Diabetes Goals to Promote Your Health * To prevent worsening of your condition and complications * To maintain your health at the optimal level Directions to Meet Your Goals Take your medications as prescribed Follow your dietary instruction Follow activity as directed Keep your appointments as scheduled Take your immunizations and boosters as scheduled If your symptoms worsen call your PCP, if no PCP go to Urgent Care Center or Emergency Room Smoking is Dangerous to Your Health. Avoid second hand smoke Call the 24-hour hour crisis hotline for domestic abuse at Judith Dillon Mar 07, 2017 10:50
[2017-03-07] MEDS ORDERED: PRED20 PO (10:55)
[2017-03-07] MEDS ORDERED: ALBUTEROL SULFATE 90 MCG/ACT HFA 8 GM INHALER INH PRN (12:00)
== END 2017-03-07 12:09 | disposition home or self-care (01) | DRG 189 ==
LOC: PHED 22:09 → PHEDA 03-06 00:13 → PH3B 03-06 01:20 → OBSVTOIN 03-06 11:33
PROVIDERS: ADMIT Hospitalist; ATTEND Hospitalist
DX: J96.91 Respiratory failure, unspecified with hypoxia (principal); N17.9 Acute kidney failure, unspecified; E11.40 Type 2 diabetes mellitus with diabetic neuropathy, unspecified; E11.65 Type 2 diabetes mellitus with hyperglycemia; J44.1 Chronic obstructive pulmonary disease with (acute) exacerbation; E86.0 Dehydration; I10 Essential (primary) hypertension; E78.5 Hyperlipidemia, unspecified; T38.0X5A Adverse effect of glucocorticoids and synthetic analogues, initial encounter; M46.90 Unspecified inflammatory spondylopathy, site unspecified; M17.0 Bilateral primary osteoarthritis of knee; F17.210 Nicotine dependence, cigarettes, uncomplicated; F32.9 Major depressive disorder, single episode, unspecified; F43.10 Post-traumatic stress disorder, unspecified; Z79.84 Long term (current) use of oral hypoglycemic drugs; Z86.14 Personal history of Methicillin resistant Staphylococcus aureus infection; Z86.73 Personal history of transient ischemic attack (TIA), and cerebral infarction without residual deficits; Z88.1 Allergy status to other antibiotic agents; Z88.7 Allergy status to serum and vaccine; Z89.422 Acquired absence of other left toe(s); Z89.511 Acquired absence of right leg below knee; Z91.11 Patient's noncompliance with dietary regimen; Z91.14 Patient's other noncompliance with medication regimen; Z91.19 Patient's noncompliance with other medical treatment and regimen
CPT/HCPCS: 36600; 71046; 76775; 80048; 80053; 80069; 80307; 81001; 82570; 82805; 82948; 83036; 83735; 84300; 85025; 94640; 94664; 96374; J1644; J1815; J1956; J2930; J7030; J7040

== ENCOUNTER 2017-05-01 17:35 | Emergency (ER) | payer MEDICARE, OTHER ==
[~2017-05-01] VITALS: Ht 177.8 cm; Wt 71.0 kg
[~2017-05-01 17:35] MED LIST changes: -CLIN300C5 PO; +PRED20 PO; +b/p med
[2017-05-01 18:03] VITALS: BP 156/78; PULSE 104; RESP 16; TEMP 98.4; O2SAT 97
== END 2017-05-01 23:39 | disposition left against medical advice (07) ==
LOC: PHED 17:35
DX: M79.672 Pain in left foot (principal); Z53.21 Procedure and treatment not carried out due to patient leaving prior to being seen by health care provider
CPT/HCPCS: 99281

== ENCOUNTER 2017-05-02 11:43 | Inpatient (IN) | payer MEDICARE, OTHER ==
[~2017-05-02] VITALS: Ht 177.8 cm; Wt 72.1 kg
[2017-05-02 11:49] VITALS: BP 172/73; PULSE 110; RESP 16; TEMP 97.7; O2SAT 99
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
[2017-05-02] MEDS ORDERED: PIPERACIL-TAZO 4.5 GM PREMIX 100 ML IV STA (12:55)
[2017-05-02 13:35] VITALS: BP 143/67; PULSE 97; RESP 18; O2SAT 99
[2017-05-02 13:37] LABS: AUTOMATED NEUTROPHIL # 5.4 TH/MM3 (1.8-7.7); BASOPHIL # 0.1 TH/MM3 (0-0.2); EOSINOPHIL % 10.7 % (0.0-4.0); HEMATOCRIT 39.2 % (39.0-51.0); LYMPH % 24.6 % (9.0-44.0); LYMPHOCYTE # 2.3 TH/MM3 (1.0-4.8); MEAN CORPUSCULAR HEMOGLOBIN 29.6 PG (27.0-34.0); MEAN CORPUSCULAR HGB CONC 33.2 % (32.0-36.0); MEAN PLATELET VOLUME 7.9 FL (7.0-11.0); MONO % 5.2 % (0.0-8.0); MONOCYTE # 0.5 TH/MM3 (0-0.9); NEUT % 58.5 % (16.0-70.0); PLATELET COUNT 394 TH/MM3 (150-450); RED CELL DISTRIBUTION WIDTH 12.7 % (11.6-17.2); WHITE BLOOD COUNT 9.3 TH/MM3 (4.0-11.0)
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
[2017-05-02 13:46] LABS: CHLORIDE 100 MEQ/L (98-107); SODIUM (NA) 136 MEQ/L (136-145)
[2017-05-02 13:50] LABS: BICARBONATE 26.4 MEQ/L (21.0-32.0); BLOOD UREA NITROGEN 18 MG/DL (7-18); GLUCOSE,RANDOM 148 MG/DL (74-106)
[2017-05-02 13:53] LABS: ALT (GPT) 11 U/L (12-78); AST (GOT) 7 U/L (15-37); GLOMERULAR FILTRATION RATE 40 ML/MIN (>89)
[2017-05-02 13:54] LABS: TOTAL BILIRUBIN ADULT 0.1 MG/DL (0.2-1.0); TOTAL PROTEIN 7.4 GM/DL (6.4-8.2)
[2017-05-02 13:55] LABS: ALKALINE PHOSPHATASE 75 U/L (45-117)
[2017-05-02 14:18] VITALS: BP 148/76; PULSE 92; RESP 20; O2SAT 95
[2017-05-02] MEDS ORDERED: DEXTROSE 50% IN WATER 50 ML VIAL(D50) IV PUSH PRN (15:15)
[2017-05-02] MEDS ORDERED: ONDANSETRON HCL 4 MG/2 ML VIAL IVP PRN (15:15)
[2017-05-02] MEDS ORDERED: SENNOSIDES 8.6 MG TAB PO PRN (15:15)
[2017-05-02] MEDS ORDERED: ACETAMINOPHEN 325 MG TAB PO PRN (15:15)
[2017-05-02] MEDS ORDERED: BISACODYL 10 MG SUPP RECTAL PRN (15:15)
[2017-05-02] MEDS ORDERED: GLUCAGON 1 MG/ML VIAL OTHER PRN (15:15)
[2017-05-02] MEDS ORDERED: NALOXONE HCL 0.4 MG/ML AMP IV PUSH PRN (15:15)
[2017-05-02] MEDS ORDERED: SODIUM CHLORIDE 0.9% FLUSH 10 ML FLUSH IV FLUSH PRN (15:15)
[2017-05-02] MEDS ORDERED: ALBUTEROL SULFATE 90 MCG/ACT HFA 8 GM INHALER INH PRN ×2 (15:15)
[2017-05-02] MEDS ORDERED: MAGNESIUM HYDROXIDE SUSP 30 ML CUP PO PRN (15:15)
[2017-05-02] MEDS ORDERED: DAPTOmycin INJ 0 MG in SODIUM CHLORIDE 0.9% INJ 100 ML IV SCH (15:45)
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
[2017-05-02] MEDS: SODIUM CHLOR 0.9% 1000 ML INJ 1,000 ML IV SCH (16:00)
[2017-05-02] MEDS: INSULIN ASPART SUPPLEMENTAL SCALE SQ SCH ×2 (17:00→21:00)
[2017-05-02] MEDS ORDERED: GADOBENATE DIM PF 529 MG/ML 5 ML VIAL (for RAD MRI) IV ONE (17:08)
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
[2017-05-02] MEDS: PIPERACIL-TAZO 4.5 GM PREMIX 100 ML IV SCH (19:01)
[2017-05-02] MEDS: GABAPENTIN 400 MG CAP PO SCH (19:28)
[2017-05-02] MEDS: DAPTOMYCIN IV SCH (19:57)
[2017-05-02] MEDS: SODIUM CHLORIDE 0.9% IV SCH (19:57)
[2017-05-02] MEDS: BACLOFEN 10 MG TAB PO SCH (20:05)
[2017-05-02 21:00] VITALS: BP 184/88; PULSE 112; RESP 19; TEMP 98.3; O2SAT 96
[2017-05-02] MEDS: DOCUSATE SODIUM 50 MG/SENNA 8.6 MG TAB PO SCH (21:00)
[2017-05-02] MEDS: SODIUM CHLORIDE 0.9% FLUSH 10 ML FLUSH IV FLUSH SCH (21:00)
[2017-05-03] VITALS: BP 148/83; PULSE 99; RESP 19; TEMP 98.2; O2SAT 93
[2017-05-03] MEDS: PIPERACIL-TAZO 4.5 GM PREMIX 100 ML IV SCH ×4 (01:54→16:51)
[2017-05-03] MEDS: SODIUM CHLOR 0.9% 1000 ML INJ 1,000 ML IV SCH ×2 (01:55→14:51)
[2017-05-03 04:00] VITALS: BP 149/84; PULSE 88; RESP 19; TEMP 98.2; O2SAT 94
[2017-05-03] MEDS: MORPHINE SULFATE 2 MG/ML INJ IV PUSH PRN ×5 (06:23→22:05)
[2017-05-03 07:45] LABS: AUTOMATED NEUTROPHIL # 5.7 TH/MM3 (1.8-7.7); BASOPHIL # 0.2 TH/MM3 (0-0.2); BASOPHIL % 1.9 % (0.0-2.0); EOSINOPHIL # 1.3 TH/MM3 (0-0.4); EOSINOPHIL % 12.4 % (0.0-4.0); HEMATOCRIT 36.9 % (39.0-51.0); HEMOGLOBIN 12.5 GM/DL (13.0-17.0); LYMPH % 24.3 % (9.0-44.0); LYMPHOCYTE # 2.5 TH/MM3 (1.0-4.8); MEAN CELL VOLUME 90.2 FL (80.0-100.0); MEAN CORPUSCULAR HEMOGLOBIN 30.5 PG (27.0-34.0); MEAN CORPUSCULAR HGB CONC 33.8 % (32.0-36.0); MEAN PLATELET VOLUME 8.2 FL (7.0-11.0); MONO % 6.4 % (0.0-8.0); MONOCYTE # 0.7 TH/MM3 (0-0.9); PLATELET COUNT 375 TH/MM3 (150-450); RED BLOOD COUNT 4.09 MIL/MM3 (4.50-5.90); RED CELL DISTRIBUTION WIDTH 13.7 % (11.6-17.2); WHITE BLOOD COUNT 10.3 TH/MM3 (4.0-11.0)
[2017-05-03 08:16] LABS: CALCIUM 9.1 MG/DL (8.5-10.1); CREATININE 1.98 MG/DL (0.60-1.30)
[2017-05-03 08:53] VITALS: BP 163/82; PULSE 102; RESP 20; TEMP 97.9; O2SAT 93
[2017-05-03] MEDS: SODIUM CHLORIDE 0.9% FLUSH 10 ML FLUSH IV FLUSH SCH ×2 (09:00→21:00)
[2017-05-03] MEDS: GABAPENTIN 400 MG CAP PO SCH ×2 (09:40→12:55)
[2017-05-03] MEDS: BACLOFEN 10 MG TAB PO SCH ×3 (09:40→16:52)
[2017-05-03] MEDS: DOCUSATE SODIUM 50 MG/SENNA 8.6 MG TAB PO SCH ×2 (09:40→22:03)
[2017-05-03] MEDS: INSULIN ASPART SUPPLEMENTAL SCALE SQ SCH ×4 (09:41→22:07)
[2017-05-03 11:41] VITALS: BP 161/88; PULSE 99; RESP 20; TEMP 97.9; O2SAT 93
[2017-05-03 15:27] VITALS: BP 143/110; PULSE 101; RESP 20; TEMP 97.7; O2SAT 95
[2017-05-03] MEDS: ACETAMINOPHEN/HYDROcodone 325 MG/5 MG TAB PO PRN (16:51)
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
[2017-05-03] MEDS: NICOTINE 14 MG/24 HR PATCH T-DERMAL SCH (17:43)
[2017-05-03] MEDS: GABAPENTIN 100 MG CAP PO SCH (17:48)
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
[2017-05-03] MEDS: DAPTOMYCIN IV SCH (18:38)
[2017-05-03] MEDS: SODIUM CHLORIDE 0.9% IV SCH (18:38)
[2017-05-03] MEDS ORDERED: ACETAMINOPHEN 325 MG TAB PO PRN (19:15)
[2017-05-03 20:40] VITALS: BP 168/90; PULSE 96; RESP 17; TEMP 98; O2SAT 94
[2017-05-03] MEDS: INSULIN DETEMIR 100 UNITS/ML VIAL SQ SCH (21:00)
[2017-05-04] VITALS: BP 149/89; PULSE 75; RESP 18; TEMP 97; O2SAT 95
[2017-05-04] MEDS: PIPERACIL-TAZO 4.5 GM PREMIX 100 ML IV SCH ×4 (00:47→16:24)
[2017-05-04] MEDS: ACETAMINOPHEN/HYDROcodone 325 MG/5 MG TAB PO PRN ×3 (00:47→20:14)
[2017-05-04] MEDS: MORPHINE SULFATE 2 MG/ML INJ IV PUSH PRN ×4 (03:16→22:05)
[2017-05-04 04:15] VITALS: BP 150/75; PULSE 80; RESP 17; TEMP 98; O2SAT 96
[2017-05-04] MEDS: SODIUM CHLOR 0.9% 1000 ML INJ 1,000 ML IV SCH ×2 (06:26→15:40)
[2017-05-04] MEDS: GABAPENTIN 100 MG CAP PO SCH ×3 (08:07→17:45)
[2017-05-04] MEDS: INSULIN ASPART SUPPLEMENTAL SCALE SQ SCH ×4 (08:07→21:05)
[2017-05-04] MEDS: DOCUSATE SODIUM 50 MG/SENNA 8.6 MG TAB PO SCH ×2 (08:07→20:14)
[2017-05-04] MEDS: BACLOFEN 10 MG TAB PO SCH ×3 (08:07→17:45)
[2017-05-04] MEDS: SODIUM CHLORIDE 0.9% FLUSH 10 ML FLUSH IV FLUSH SCH ×2 (08:09→20:14)
[2017-05-04] MEDS: REMOVE OLD PATCH T-DERMAL SCH (08:13)
[2017-05-04] MEDS: NICOTINE 14 MG/24 HR PATCH T-DERMAL SCH (08:14)
[2017-05-04 08:22] VITALS: BP 144/73; PULSE 107; RESP 20; TEMP 97.7; O2SAT 97
[2017-05-04] MEDS ORDERED: BUPIVACAINE HCL PF 0.5% 30 ML VIAL ONE (11:32)
[2017-05-04] MEDS ORDERED: NEOMYCIN/POLYMYXIN 1 ML G.U. IRRIGANT ONE (11:34)
--- NOTE | 2017-05-04 11:57 | HHI.PR ---
Subjective Remarks Patient seen preoperatively. Agrees to planned surgical procedure. Objective Vital Signs Date Time Temp Pulse Resp B/P (MAP) Pulse Ox O2 Delivery O2 Flow Rate FiO2 05/04/17 08:22 97.7 107 20 144/73 (96) 97 05/04/17 04:15 98.0 80 17 150/75 (100) 96 05/04/17 00:00 97.0 75 18 149/89 (109) 95 05/03/17 20:40 98.0 96 17 168/90 (116) 94 05/03/17 15:27 97.7 101 20 143/110 (121) 95 I/O 05/03/17 05/03/17 05/03/17 05/04/17 05/04/17 05/04/17 07:00 15:00 23:00 07:00 15:00 23:00 Intake Total 1525 ml 900 ml Balance 1525 ml 900 ml Intake Oral 1525 ml 900 ml # Voids 2 6 3 # Bowel Movements 0 0 0 Result Diagram: 05/03/17 0717 05/03/17 0717 Imaging Last Impressions Toe X-Ray 05/02/17 1245 Signed Impressions: Service Date/Time: Tuesday, May 02, 2017 12:55 - CONCLUSION: Soft tissue soft tissue injury as described above. Cannot exclude osteomyelitis involving the distal left third toe. Correlation is suggested. Mic Antonio MD FACR Foot MRI 05/02/17 0000 Signed Impressions: Service Date/Time: Tuesday, May 02, 2017 16:26 - CONCLUSION: Osteomyelitis distal tuft second Toe. Mic Antonio MD FACR Procedures Current Medications Medications (Trade) Dose Ordered Sig/Donnie Route Start Time Stop Time Status Last Admin (NS Flush) 2 ml UNSCH PRN IV FLUSH 05/02/17 15:15 (NS Flush) 2 ml BID IV FLUSH 05/02/17 21:00 05/02/17 21:00 (Zofran Inj) 4 mg Q6H PRN IVP 05/02/17 15:15 (Narcan Inj) 0.4 mg UNSCH PRN IV PUSH 05/02/17 15:15 (Carina-Colace) 1 tab BID PO 05/02/17 21:00 05/04/17 08:07 (Milk Of Magnesia Liq) 30 ml Q12H PRN PO 05/02/17 15:15 05/03/17 22:02 (Senokot) 17.2 mg Q12H PRN PO 05/02/17 15:15 (Dulcolax Supp) 10 mg DAILY PRN RECTAL 05/02/17 15:15 (Proair Hfa Inh) 2 puff BID PRN INH 05/02/17 15:15 (Lioresal) 10 mg TID PO 05/02/17 18:00 05/04/17 08:07 (D50w (Vial) Inj) 50 ml UNSCH PRN IV PUSH 05/02/17 15:15 (Glucagon Inj) 1 mg UNSCH PRN OTHER 05/02/17 15:15 (NovoLOG SUPPLEMENTAL SCALE) 1 ACHS SLIDING SCALE SQ 05/02/17 17:00 05/04/17 08:07 Piperacillin Sod/ Tazobactam Sod 100 ml @ 200 mls/hr Q6H IV 05/02/17 18:00 05/04/17 06:26 Sodium Chloride 1,000 ml @ 84 mls/hr [id number] IV 05/02/17 16:00 05/04/17 06:26 Daptomycin 280 mg/ Sodium Chloride 100 ml @ 200 mls/hr Q24H IV 05/02/17 19:00 05/03/17 18:38 (Tylenol) 500 mg Q4H PRN PO 05/03/17 19:15 (Morphine Inj) 4 mg Q3H PRN IV PUSH 05/03/17 17:45 05/04/17 08:12 ([place] 5-325 Mg) 1 tab Q6H PRN PO 05/03/17 16:00 05/04/17 06:27 (Habitrol 14 Mg Patch.24 Hr) 1 patch DAILY T-DERMAL 05/03/17 16:15 05/04/17 08:14 Miscellaneous Information 1 DAILY T-DERMAL 05/04/17 09:00 05/04/17 08:13 (Neurontin) 200 mg TID PO 05/03/17 18:00 05/04/17 08:07 (Levemir Inj) 7 units HS SQ 05/03/17 21:00 Other Results Microbiology Date/Time Source Procedure Growth Status 05/02/17 13:15 Blood Peripheral Aerobic Blood Culture - Preliminary NO GROWTH IN 2 DAYS Resulted 05/02/17 13:15 Blood Peripheral Anaerobic Blood Culture - Preliminary NO GROWTH IN 2 DAYS Resulted 05/02/17 16:00 Wound Toe Gram Stain - Final Resulted 05/02/17 16:00 Wound Culture - Preliminary Gram Negative Waylon Resulted Objective Remarks Left foot dressing intact with strikethrough noted. Medications and IVs Current Medications Medications (Trade) Dose Ordered Sig/Donnie Route Start Time Stop Time Status Last Admin (NS Flush) 2 ml UNSCH PRN IV FLUSH 05/02/17 15:15 (NS Flush) 2 ml BID IV FLUSH 05/02/17 21:00 05/02/17 21:00 (Zofran Inj) 4 mg Q6H PRN IVP 05/02/17 15:15 (Narcan Inj) 0.4 mg UNSCH PRN IV PUSH 05/02/17 15:15 (Carina-Colace) 1 tab BID PO 05/02/17 21:00 05/04/17 08:07 (Milk Of Magnesia Liq) 30 ml Q12H PRN PO 05/02/17 15:15 05/03/17 22:02 (Senokot) 17.2 mg Q12H PRN PO 05/02/17 15:15 (Dulcolax Supp) 10 mg DAILY PRN RECTAL 05/02/17 15:15 (Proair Hfa Inh) 2 puff BID PRN INH 05/02/17 15:15 (Lioresal) 10 mg TID PO 05/02/17 18:00 05/04/17 08:07 (D50w (Vial) Inj) 50 ml UNSCH PRN IV PUSH 05/02/17 15:15 (Glucagon Inj) 1 mg UNSCH PRN OTHER 05/02/17 15:15 (NovoLOG SUPPLEMENTAL SCALE) 1 ACHS SLIDING SCALE SQ 05/02/17 17:00 05/04/17 08:07 Piperacillin Sod/ Tazobactam Sod 100 ml @ 200 mls/hr Q6H IV 05/02/17 18:00 05/04/17 06:26 Sodium Chloride 1,000 ml @ 84 mls/hr [id number] IV 05/02/17 16:00 05/04/17 06:26 Daptomycin 280 mg/ Sodium Chloride 100 ml @ 200 mls/hr Q24H IV 05/02/17 19:00 05/03/17 18:38 (Tylenol) 500 mg Q4H PRN PO 05/03/17 19:15 (Morphine Inj) 4 mg Q3H PRN IV PUSH 05/03/17 17:45 05/04/17 08:12 ([place] 5-325 Mg) 1 tab Q6H PRN PO 05/03/17 16:00 05/04/17 06:27 (Habitrol 14 Mg Patch.24 Hr) 1 patch DAILY T-DERMAL 05/03/17 16:15 05/04/17 08:14 Miscellaneous Information 1 DAILY T-DERMAL 05/04/17 09:00 05/04/17 08:13 (Neurontin) 200 mg TID PO 05/03/17 18:00 05/04/17 08:07 (Levemir Inj) 7 units HS SQ 05/03/17 21:00 Assessment and Plan Assessment and Plan 51-year-old male with left second digit osteomyelitis, left hallux ulceration Patient examined evaluated with all questions answered MRI positive for osteomyelitis noted to distal phalanx of second digit left foot Patient is in favor of and agrees with surgical intervention for left second digit Patient to OR today for left second digit amputation with left hallux ulcer debridement Consent signed LLE marked Has remained NPO Will obtain clearing margins Anticipate DC 2-3 days postop Judith Matthews DPM May 04, 2017 11:57
[2017-05-04] MEDS ORDERED: PROPOFOL 200 MG/20 ML AMP IV ONE (12:00)
[2017-05-04] MEDS ORDERED: LIDOCAINE HCL 1% PF 5 ML SYRINGE OTHER ONE (12:00)
[2017-05-04] MEDS ORDERED: BACITRACIN TOP OINT 15 GM TUBE ONE (12:19)
[2017-05-04] MEDS ORDERED: Post-op Orders (for Pharmacy) XX ONE (12:45)
--- NOTE | 2017-05-04 12:46 | HHI.PR ---
Immediate Post Op Note Procedure Date: May 04, 2017 Pre Op Diagnosis: Left hallux ulceration Left second digit osteomyelitis Post Op Diagnosis: Left hallux ulceration Left second digit osteomyelitis Surgeon: Judith Matthews Project Scheduler(s): None Procedure: Left hallux ulcer debridement and irrigation Left second digit amputation Findings: None Additional Information: None Complications: None Specimen(s) removed: Left proximal phalanx clearing margin for path and micro Left foot soft tissue Left second digit for path Estimated blood loss: 5cc Anesthesia: MAC Drains: None Patient to: PACU Patient Condition: Good Judith Matthews DPM May 04, 2017 12:46
[2017-05-04] MEDS ORDERED: MIDAZOLAM HCL 2 MG/2 ML VIAL ONE (12:49)
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
[2017-05-04] MEDS ORDERED: DO NOT ADM ANY ANTICOAGULANT DRUGS PRN (13:15)
--- NOTE | 2017-05-04 13:30 | RADRPT ---
EXAM DATE/TIME: 05/04/2017 12:47 [facility] COMPARISON: TOE LEFT 2ND DIGIT (MIN 2VWS), May 02, 2017, 12:55. MRI FOOT LEFT W & W/O CONTRAST, May 02, 2017 , 16:26. MRI FOOT LEFT W & W/O CONTRAST, June 22, 2015, 12:59. FOOT LEFT COMPLETE ([id number]), June 21, 2015, 19:38. INDICATIONS : Post operative for second digit amputation. MEDICAL HISTORY : Hypercholesterolemia. Chronic obstructive pulmonary disease. Hypertension. Asthma. Arthritis. Diabete s. MRSA. SURGICAL HISTORY : Appendectomy. Cholecystectomy. Right below knee amputation. Partial amputation, left 4th metatarsal. ENCOUNTER: Initial ACUITY: 1 day PAIN SCORE: Non-responsive. LOCATION: Left foot. FINDINGS: The patient is status post amputation of the second digit down to the level of the mid proximal secon d phalanx. Again noted is the postsurgical change from prior amputation of the fourth digit to the le lane of the mid fourth metacarpal. No areas of acute bony destruction are seen. There is a calcaneal s pur at the Achilles attachment site. CONCLUSION: Status post amputation of the second digit to the level of the mid aspect of the second proximal phal anx. Cortez Pulido MD on May 04, 2017 at 13:21 Board Certified Radiologist. This report was verified electronically.
[2017-05-04 15:45] VITALS: BP 137/78; PULSE 92; RESP 18; TEMP 97.7; O2SAT 95
[2017-05-04] MEDS: DAPTOMYCIN IV SCH (17:55)
[2017-05-04] MEDS: SODIUM CHLORIDE 0.9% IV SCH (17:55)
--- NOTE | 2017-05-04 19:48 | EKG ---
Date Performed: 05/04/2017 Time Performed: 04:38:32 PTAGE: 51 years EKG: Sinus tachycardia with frequent PVCs Possible anterior infarct - age undetermined Since the previous tracing, no significant change noted Abnormal ECG PREVIOUS TRACING : 01/31/2017 12.09 DOCTOR: Edd Mancera Interpretating Date/Time 05/04/2017 19:45:59
[2017-05-04] MEDS: INSULIN DETEMIR 100 UNITS/ML VIAL SQ SCH (21:05)
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
[2017-05-04 21:45] VITALS: BP 120/60; PULSE 88; RESP 20; TEMP 98.9; O2SAT 98
[2017-05-05] VITALS (8 sets, daily range): BP systolic 118–199; BP diastolic 69–109; PULSE 80–111; RESP 17–22; TEMP 97.3–99.1; O2SAT 90–99
[2017-05-05] MEDS: PIPERACIL-TAZO 4.5 GM PREMIX 100 ML IV SCH ×4 (01:06→17:23)
[2017-05-05] MEDS: SODIUM CHLOR 0.9% 1000 ML INJ 1,000 ML IV SCH ×2 (01:07→15:08)
[2017-05-05] MEDS: ACETAMINOPHEN/HYDROcodone 325 MG/5 MG TAB PO PRN ×3 (05:29→20:43)
[2017-05-05 07:27] LABS: BASOPHIL # 0.1 TH/MM3 (0-0.2); BASOPHIL % 1.3 % (0.0-2.0); EOSINOPHIL # 1.2 TH/MM3 (0-0.4); EOSINOPHIL % 11.5 % (0.0-4.0); HEMOGLOBIN 11.6 GM/DL (13.0-17.0); LYMPHOCYTE # 2.5 TH/MM3 (1.0-4.8); MEAN PLATELET VOLUME 8.3 FL (7.0-11.0); MONO % 5.9 % (0.0-8.0); MONOCYTE # 0.6 TH/MM3 (0-0.9); NEUT % 57.3 % (16.0-70.0); PLATELET COUNT 344 TH/MM3 (150-450); RED BLOOD COUNT 3.85 MIL/MM3 (4.50-5.90); RED CELL DISTRIBUTION WIDTH 13.7 % (11.6-17.2); WHITE BLOOD COUNT 10.5 TH/MM3 (4.0-11.0)
[2017-05-05 07:32] LABS: BICARBONATE 26.5 MEQ/L (21.0-32.0); CREATININE 1.83 MG/DL (0.60-1.30)
[2017-05-05] MEDS: INSULIN ASPART 1,000 UNITS/10 ML VIAL SQ SCH ×3 (08:25→17:22)
[2017-05-05] MEDS: INSULIN ASPART SUPPLEMENTAL SCALE SQ SCH ×4 (08:25→20:59)
[2017-05-05] MEDS: NICOTINE 14 MG/24 HR PATCH T-DERMAL SCH (08:30)
[2017-05-05] MEDS: REMOVE OLD PATCH T-DERMAL SCH (08:30)
[2017-05-05] MEDS: DOCUSATE SODIUM 50 MG/SENNA 8.6 MG TAB PO SCH ×2 (08:31→20:37)
[2017-05-05] MEDS: SODIUM CHLORIDE 0.9% FLUSH 10 ML FLUSH IV FLUSH SCH ×2 (08:31→20:37)
[2017-05-05] MEDS: BACLOFEN 10 MG TAB PO SCH ×3 (08:31→17:23)
[2017-05-05] MEDS: GABAPENTIN 100 MG CAP PO SCH ×3 (08:31→17:23)
[2017-05-05] MEDS: MORPHINE SULFATE 2 MG/ML INJ IV PUSH PRN ×2 (11:52→17:24)
--- NOTE | 2017-05-05 16:12 | HHI.PR ---
Addendum to Inpatient Note Additional Information Pt seen today a round 1300 full note to follow Kisha Chilel MD May 05, 2017 16:12
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
--- NOTE | 2017-05-05 16:30 | HHI.FF ---
Infusion Therapy Location of Infusion Therapy: Home [facility] Care IV Infusion Order Patient Information Patient Weight 70.5 kg Diagnosis: Coded Allergies: duloxetine (Verified Allergy, Severe, Urinary Freq (Inc/Dec), 05/02/17) vancomycin (Verified Adverse Reaction, Severe, Swelling, 05/02/17) KIDNEYS SHUT DOWN tuberculin, purified protein deriva (Verified Adverse Reaction, Intermediate, OTHER, 05/02/17) + PPD, HAS GONE THRU MEDICATION REGIMEN SEV TIMES, LAST WAS IN 2012. 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 [] May leave port accessed during therapy. [] May leave peripheral site accessed for duration of therapy. [x] If patient has SOB or respiratory distress, check oxygen saturation. If less than 90% or clinical signs of respiratory distress, administer oxygen at 2 L/min. via nasal cannula and notify physician. [x] Anaphylaxis/Reaction orders: * Stop infusion. * Keep IV line open with saline flush. * Notify physician. * Monitor vital signs every 15 minutes until symptoms resolve. * Check Oxygen saturation; Oxygen at 2 L/min. via nasal cannula if less than 90% or clinical signs of respiratory distress. * Administer diphenhydramine (Benadryl) 25 mg IV STAT, (unless patient has received as pre-med). May repeat once, if necessary. * Solu-Cortef 250 mg IVP over 30-60 seconds, use 100 mg vials for each dissolution. * Epinephrine (1mg/1 ml) 0.3 mg subcutaneously or IVP now with any signs of respiratory distress. * Check with physician for new additional pre-med orders if patient is re- challenged or re-treated. [x] May remove PICC line when treatment complete, after confirming with Physician. [x] If the patient is admitted to the hospital, the ED, or transferred via [facility] , complete transfer form including medication reconciliation order sheet. Laboratory Tests Weekly Labs: CBC w/diff, Creatinine, LFT's (Hepatic function test) Kisha Chilel MD May 05, 2017 16:30
--- NOTE | 2017-05-05 19:04 | PD.POD ---
Subjective Podiatric Problems POD #1 left partial second toe amp and hallux wound debridement with . Pt states that his pain is uncontrolled with [place] but fine with morphine. He denies any n/v/f/h/c/sob. Pain score: 4 Past Med/Surg/Social History Social History Smoking Status: Current Some Day Smoker Objective Vital Signs Vital Signs Date Time Temp Pulse Resp B/P (MAP) Pulse Ox O2 Delivery O2 Flow Rate FiO2 05/05/17 16:16 98.3 104 18 199/99 (132) 96 05/05/17 13:28 92 05/05/17 12:00 98.0 111 18 191/102 (131) 92 05/05/17 10:59 110 05/05/17 08:23 99.1 101 18 159/88 (111) 90 05/05/17 04:45 97.3 109 17 135/69 (91) 94 05/05/17 00:40 97.9 80 19 118/76 (90) 99 05/04/17 22:52 21 05/04/17 21:45 98.9 88 20 120/60 (80) 98 Coded Allergies: duloxetine (Verified Allergy, Severe, Urinary Freq (Inc/Dec), 05/02/17) vancomycin (Verified Adverse Reaction, Severe, Swelling, 05/02/17) KIDNEYS SHUT DOWN tuberculin, purified protein deriva (Verified Adverse Reaction, Intermediate, OTHER, 05/02/17) + PPD, HAS GONE THRU MEDICATION REGIMEN SEV TIMES, LAST WAS IN 2012. *MDRO Multi-Drug Resistant Organism (Verified Adverse Reaction, Unknown, ) MRSA (leg wound) 12/2014 Physical Exam Remarks Left partial second toe amputation with all sutures intact, no drainage, slight dora incisional erythema. Left lateral hallux ulcer 1cm x 1cm x0, granular wound bed, no signs of infection Calf is supple and non tender to compression Assessment & Plan A/P 1)s/p left partial second toe amp and wound debridement -sx cxs pending, outpt abx per ID -M/W/F dressing change orders places -WBAT in surgical shoe -ok for d/c pending ID recs -f/u with in 1 week Ofelia Talley DPM May 05, 2017 19:04
[2017-05-05] MEDS ORDERED: cloNIDine HCL 0.1 MG TAB PO ONE (20:15)
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
[2017-05-05] MEDS: INSULIN DETEMIR 100 UNITS/ML VIAL SQ SCH (20:38)
[2017-05-06] VITALS (8 sets, daily range): BP systolic 129–197; BP diastolic 61–96; PULSE 77–117; RESP 18–20; TEMP 97.3–98.3; O2SAT 93–98
[2017-05-06] MEDS: PIPERACIL-TAZO 4.5 GM PREMIX 100 ML IV SCH ×5 (01:02→23:58)
[2017-05-06] MEDS: MORPHINE SULFATE 2 MG/ML INJ IV PUSH PRN ×5 (01:03→20:29)
[2017-05-06] MEDS ORDERED: cloNIDine HCL 0.2 MG TAB PO ONE (02:00)
[2017-05-06] MEDS: ACETAMINOPHEN/HYDROcodone 325 MG/5 MG TAB PO PRN ×3 (04:23→18:37)
[2017-05-06] MEDS: INSULIN ASPART SUPPLEMENTAL SCALE SQ SCH ×4 (08:00→20:30)
[2017-05-06] MEDS: INSULIN ASPART 1,000 UNITS/10 ML VIAL SQ SCH ×3 (08:00→17:00)
[2017-05-06] MEDS: SODIUM CHLORIDE 0.9% FLUSH 10 ML FLUSH IV FLUSH SCH ×2 (09:00→20:30)
[2017-05-06] MEDS: REMOVE OLD PATCH T-DERMAL SCH (09:00)
[2017-05-06] MEDS: DOCUSATE SODIUM 50 MG/SENNA 8.6 MG TAB PO SCH ×2 (09:01→20:29)
[2017-05-06] MEDS: GABAPENTIN 100 MG CAP PO SCH ×3 (09:01→17:28)
[2017-05-06] MEDS: BACLOFEN 10 MG TAB PO SCH ×3 (09:01→17:29)
[2017-05-06] MEDS: NICOTINE 14 MG/24 HR PATCH T-DERMAL SCH (09:04)
--- NOTE | 2017-05-06 13:22 | HHI.FF ---
Face to Face Verification Diagnosis: (1) Diabetic ulcer of left foot associated with diabetes mellitus due to underlying condition (2) Diabetes Physical Therapy Order: Evaluate and Treat, Improve ambulation, Strength and gait training Home Health Nursing Order: Medical education Signs/symptoms of disease process Diabetic education Medication education-adverse effect Wound care and dressing changes Nursing assessment with vital signs IV medication administration I have seen patient Dallin Lemus on 05/06/17. My clinical findings support the need for the requested home health care services because: Ltd mobility - disease progression Deconditioned w/ increased weakness Limited ability to care for self Need for psychosocial assistance Impaired cognition/judgement High risk of falls Infection w/ risk of complications I certify that my clinical findings support that this patient is homebound because: Post-op weakness Unsteady gait/balance Unsafe to leave home unassisted Unable to use public transportation Samantha Rodney DO May 06, 2017 1:22 pm
--- NOTE | 2017-05-06 14:30 | RADRPT ---
EXAM DATE/TIME: 05/03/2017 00:00 [place] COMPARISON: No previous studies available for comparison. INDICATIONS : Osteomyelitis TECHNIQUE: Five-station segmental examination of the lower extremities was performed. Pulsed-cuff waveform tracings and pressures were recorded. Ankle-brachial indices and toe-brachial indices were calculated. PRESSURES (mmHg): Brachial (arm): Right iv site Left 117 Lower Thigh: Right amputee Left 159 Calf: Right Left 145 Ankle: Right Left 150 Toe: Right Left 105 JUANITA: Right Left 1.28 TBI: Right Left 0.90 PULSED CUFF WAVEFORMS: Demonstrate normal amplitude bilaterally. CONCLUSION: Unremarkable segmental evaluation of the left lower extremity in this patient with a right amputation . Aren Hamilton Jr., MD on May 06, 2017 at 14:27 Board Certified Radiologist. This report was verified electronically.
[2017-05-06] MEDS: LOSARTAN 50 MG TAB PO SCH (18:38)
[2017-05-06] MEDS: INSULIN DETEMIR 100 UNITS/ML VIAL SQ SCH (20:30)
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
[2017-05-07] VITALS (8 sets, daily range): BP systolic 124–184; BP diastolic 63–94; PULSE 68–107; RESP 16–18; TEMP 97.4–98.2; O2SAT 92–96
[2017-05-07] MEDS: PIPERACIL-TAZO 4.5 GM PREMIX 100 ML IV SCH ×3 (06:00→17:31)
[2017-05-07] MEDS: ACETAMINOPHEN/HYDROcodone 325 MG/5 MG TAB PO PRN ×2 (06:02→10:20)
[2017-05-07] MEDS: INSULIN ASPART 1,000 UNITS/10 ML VIAL SQ SCH ×3 (08:00→17:00)
[2017-05-07] MEDS: INSULIN ASPART SUPPLEMENTAL SCALE SQ SCH ×4 (08:00→20:48)
--- NOTE | 2017-05-07 08:22 | MB ---
cc: Dunia Scott MD DATE: 05/06/2017 REASON FOR CONSULTATION: Chronic kidney disease with elevated BUN and creatinine. HISTORY OF PRESENT ILLNESS: This is a 51-year-old male with a past medical history of hypertension, diabetes mellitus, chronic obstructive pulmonary disease, history of cerebrovascular accident, peripheral vascular disease, chronic kidney disease, chronic obstructive pulmonary disease, came to the hospital because of left toe gangrene and osteomyelitis. I was called to see the patient because of elevated BUN and creatinine. The patient has creatinine of 1.8 on presentation. Previously, he has creatinine in the range of 1.8-2.3 in February and in the past he has creatinine 1.5-1.8 going back in 2015 and 2017. The patient denies any known history of renal disease, but it seems like his kidney function has been in the same range for some time. He has never seen a accounting tutor. His left toe has an infected wound and gangrene and patient is supposed to get outpatient antibiotic with a possibility of PICC line placement. Infectious disease is following the patient. The patient denied any dysuria, hematuria. He occasionally has nausea. There is no vomiting. No history of diarrhea. He denies taking any nonsteroidal anti-inflammatory drugs at home. PAST MEDICAL HISTORY: Hypertension, diabetes mellitus, cerebrovascular accident, peripheral vascular disease, chronic obstructive pulmonary disease,, chronic kidney disease. PAST SURGICAL HISTORY: Right below knee amputation, left foot fourth digit amputation, appendicectomy, cholecystectomy, pilonidal cyst drainage. REVIEW OF SYSTEMS: Denied any history of fever. No headache, dizziness or blurring of vision. He has mild nausea. There is no vomiting, no shortness of breath. No chest pain, no palpitation. No nausea, no vomiting, but has mild nausea. There is no abdominal pain. No history of diarrhea. No dysuria, hematuria. SOCIAL HISTORY: There is history of chronic smoking, about 1 pack per day. There is no history of alcoholism. FAMILY HISTORY: Noncontributory. ALLERGIES: HE IS ALLERGIC TO CYMBALTA, VANCOMYCIN, TUBERCULIN. MEDICATIONS: Currently, he is on the following medications, nicotine patch, Levemir 7 units at bedtime, Zosyn 4.5 grams IV every 6 hours, NovoLog sliding scale, baclofen 10 mg t.i.d., Neurontin 200 mg t.i.d., Novolin aspart sliding scale, Zofran as needed, Senokot as needed. PHYSICAL EXAMINATION: GENERAL: The patient is awake, alert. He is not in acute distress. VITAL SIGNS: His blood pressure is 148/76, temperature is 97.7, oxygen saturation is 94-95%. HEENT: Pupils mid-constricted, nonicteric sclera, conjunctivae are pale. NECK: Supple. JVD is not elevated. LUNGS: The patient has bilateral good air entry with occasional wheezing. HEART: S1, S2. Regular rhythm. ABDOMEN: Distended, soft, lax. There is no tenderness. Bowel sounds positive. EXTREMITIES: He has right below knee amputation. The left foot is covered with dressing. INVESTIGATIONS: WBC count is 10.5, hemoglobin 11.6, platelet count of 344, neutrophils 57.3%. Sodium 142, potassium 5.2, chloride 110, bicarbonate 26.5, BUN 15, creatinine 1.8, calcium is 9.0. Urinalysis showing protein of 100. Cultures and the wound culture are growing Providencia. IMAGING STUDY: The patient has ultrasound of the kidney done in February of this year and it shows that he has normal size kidneys, with increased echogenicity and has 250 mL of postvoid residual. Foot MRI was done, which shows that he has osteomyelitis of the second toe. ASSESSMENT AND PLAN: 1. Osteomyelitis and peripheral vascular disease. 2. Chronic kidney disease. 3. Hypertension. 4. Diabetes mellitus. 5. Anemia. 6. Chronic smoker. The patient has chronic kidney disease with some proteinuria. Most likely, he has hypertensive or renovascular disease or possibility of diabetic nephropathy. The patient has stable creatinine in the range of 1.8-1.9, which is probably his baseline. His blood pressure is slightly on the higher side, so I will put him on Losartan with close watch on his potassium and his creatinine. About the outpatient antibiotic and the access, try to avoid PICC line since patient has advanced stage III renal disease and his GFR has been close to 36-39 mL per minute. Can get Midline or Infusaport to go for outpatient therapy, but if it is necessary to get a PICC line, then the patient should be informed that his cough causing the damage to his veins because of the PICC line since he possibly will need dialysis at some point in his life. Since the patient has stable creatinine, I will not do too much workup, but will check the bladder scan since he has a higher residual before and get GARRY and serum protein electrophoresis in the morning. Thank you for the consultation. I will follow the patient while he is in the hospital. MD BRENDA Smiley/CLARISA , 05:56 PM , 07:05 PM ADAM
[2017-05-07] MEDS: GABAPENTIN 100 MG CAP PO SCH ×3 (08:42→17:30)
[2017-05-07] MEDS: DOCUSATE SODIUM 50 MG/SENNA 8.6 MG TAB PO SCH ×2 (08:42→20:47)
[2017-05-07] MEDS: LOSARTAN 50 MG TAB PO SCH (08:42)
[2017-05-07] MEDS: BACLOFEN 10 MG TAB PO SCH ×3 (08:42→17:39)
[2017-05-07] MEDS: NICOTINE 14 MG/24 HR PATCH T-DERMAL SCH (08:44)
[2017-05-07] MEDS: REMOVE OLD PATCH T-DERMAL SCH (08:44)
[2017-05-07] MEDS ORDERED: BACITRACIN TOP OINT 15 GM TUBE TOPICAL SCH (09:00)
[2017-05-07] MEDS: SODIUM CHLORIDE 0.9% FLUSH 10 ML FLUSH IV FLUSH SCH ×2 (09:00→20:48)
[2017-05-07 10:15] LABS: BICARBONATE 26.8 MEQ/L (21.0-32.0); CALCIUM 9.4 MG/DL (8.5-10.1); CREATININE 1.84 MG/DL (0.60-1.30)
[2017-05-07 10:17] LABS: PHOSPHORUS 3.8 MG/DL (2.5-4.9)
[2017-05-07] MEDS: MORPHINE SULFATE 2 MG/ML INJ IV PUSH PRN ×2 (12:07→20:49)
[2017-05-07] MEDS ORDERED: MIDAZOLAM HCL 2 MG/2 ML VIAL ONE (15:24)
--- NOTE | 2017-05-07 15:30 | HHI.NPPN ---
Subjective History of Present Illness This is a 51-year-old male with a past medical history of hypertension, diabetes mellitus, chronic obstructive pulmonary disease, history of cerebrovascular accident, peripheral vascular disease, chronic kidney disease, chronic obstructive pulmonary disease, came to the hospital because of left toe gangrene and osteomyelitis.Nephrology was called to see the patient because of elevated BUN and creatinine. The patient has creatinine of 1.8 on presentation. Previously, he has creatinine in the range of 1.8-2.3 in February and in the past he has creatinine 1.5-1.8 going back in 2015 and 2017. The patient denies any known history of renal disease, but it seems like his kidney function has been in the same range for some time. He has never seen a client specialist. His left toe has an infected wound and gangrene and patient is supposed to get outpatient antibiotic with a possibility of PICC line placement. Infectious disease is following the patient. The patient denied any dysuria, hematuria. He occasionally has nausea. There is no vomiting. No history of diarrhea. He denies taking any nonsteroidal anti-inflammatory drugs at home. Additional Remarks Patient is somewhat agitated. Does not want outpatient IV antibiotics. Denies any SOB (Valencia Chung) Review of Systems Respiratory Respiratory Remarks Denies any SOB (Valencia Chung) Cardiovascular Cardiac Remarks Denies any CP (Valencia Chung) Gastrointestinal GI Remarks denies any Abdominal pain (Valencia Chung) Objective Data Data Vital Signs Date Time Temp Pulse Resp B/P (MAP) Pulse Ox O2 Delivery O2 Flow Rate FiO2 05/07/17 12:00 97.7 93 16 167/79 (108) 95 05/07/17 08:00 97.4 78 16 128/87 (101) 94 05/07/17 03:51 97.5 68 16 158/89 (112) 93 05/07/17 00:00 97.6 77 17 124/63 (83) 93 05/06/17 20:00 98.0 89 20 146/70 (95) 96 05/06/17 17:47 117 05/06/17 16:23 97.7 77 18 148/76 (100) 94 (Valencia Chung) -: 05/05/17 0632 05/07/17 0917 Physical Exam General Appearance: No Acute Distress, Comfortable (Valencia Chung) Eyes Eye Exam: Pupils Equal (Valencia Chung) Pulmonary Resp Exam: Clear Bilaterally, Breath Sounds Equal, No Distress (Valencia Chung) Cardiology CV Exam: Regular (Valencia Chung) Gastrointestinal/Abdomen GI Exam: Soft, Non-Tender, Bowel Sounds Present (Valencia Chung) Genitourinary Exam: Flank Non-Tender (Valencia Chung) Integumentary Skin Exam: Clear, Warm (Valencia Chung) Extremeties Extremities Exam: No Edema (Valencia Chung) Neurologic Neuro Exam: Alert, Awake, Oriented (Valencia Chung) Psychiatric Psych Exam: Appropriate Responses (Valencia Chung) Assessment/Plan Discussed Condition With: Patient Assessment Summary: CKD Stage III Problem List: (1) CKD (chronic kidney disease) stage 3, GFR 30-59 ml/min ICD Codes: N18.3 - Chronic kidney disease, stage 3 (moderate) Plan: Chronic kidney disease most likely, he has hypertensive or renovascular disease or possibility of diabetic nephropathy. The patient has stable creatinine in the range of 1.8-1.9, which is probably his baseline. Creatinine today at 1.84 Plan Urine with proteinuria losartan added yesterday will monitor for hyperkalemia. Serology and serum protein electrophoresis pending. Monitor BMP and UOP Per PICC line recommendation see consultation. Patient in future will possibly need dialysis at some point in his life and PICC line can cause damage to veins. Avoid nephrotoxins when possible . (2) HTN (hypertension) ICD Codes: I10 - Essential (primary) hypertension Plan: labile Losartan added yesterday will monitor (3) Diabetes ICD Codes: E11.9 - Type 2 diabetes mellitus without complications Status: Chronic Plan: Maintain BS between 140 mg/dl to 180 mg/dl (Valencia Chung) Problem List: (1) CKD (chronic kidney disease) stage 3, GFR 30-59 ml/min ICD Codes: N18.3 - Chronic kidney disease, stage 3 (moderate) Plan: Chronic kidney disease most likely, he has hypertensive or renovascular disease or possibility of diabetic nephropathy. The patient has stable creatinine in the range of 1.8-1.9, which is probably his baseline. Creatinine today at 1.84 Plan Urine with proteinuria losartan added yesterday will monitor for hyperkalemia. Serology and serum protein electrophoresis pending. Monitor BMP and UOP Per PICC line recommendation see consultation. Patient in future will possibly need dialysis at some point in his life and PICC line can cause damage to veins. Avoid nephrotoxins when possible Patient seen and examined, agree with above. Has chronic kidney disease, most likely Diabetic Nephropathy. To Get Infusaport, avoid PICC line. . (2) HTN (hypertension) ICD Codes: I10 - Essential (primary) hypertension Plan: labile Losartan added yesterday will monitor (3) Diabetes ICD Codes: E11.9 - Type 2 diabetes mellitus without complications Status: Chronic Plan: Maintain BS between 140 mg/dl to 180 mg/dl (Ella Scott MD) Valencia Chung May 07, 2017 15:29 Ella Scott MD May 07, 2017 18:38
[2017-05-07] MEDS ORDERED: LIDOCAINE 1%/EPINEPHrine 1:100,000 SOLN 30 ML VIAL ONE (15:47)
[2017-05-07] MEDS ORDERED: SODIUM CHLORIDE 0.9% FLUSH 10 ML FLUSH IVF PRN ×2 (17:00)
--- NOTE | 2017-05-07 17:28 | RADRPT ---
EXAM DATE/TIME: 05/07/2017 15:48 [facility] COMPARISON: No previous studies available for comparison. INDICATIONS : Patient presents with left toe osteomyelitis in need of tunneled central venous line placement for me dication administration. MEDICAL HISTORY : Diabetes mellitus History of osteomyelitis requiring right below the knee amputation. Amputation of the left lower ext remity fourth digit. History of CVA History of hyperlipidemia Tobacco use. COPD SURGICAL HISTORY : Right BKA Left foot fourth digit amputation. Appendectomy in Cholecystectomy Pilonidal cyst drainage ENCOUNTER: Initial ACUITY: 2 weeks PAIN SCORE: 8/10 LOCATION: Left foot FLUORO TIME: 0.6 minutes IMAGE SERIES: 1 SEDATION TIME: 30 minutes ACCESS: Right internal jugular vein SEDATION: 1.) 2 mg midazolam (Versed) IV 2.) 10 mcg fentanyl (Sublimaze) IV Prophylactic antibiotics were administered with appropriate pre-procedure timing. Vancomycin within 2 hours of procedure, Ancef (or alternative) within 1 hour of procedure. DEVICE: 1. 5 Vincentian single lumen 20 cm Power Tunnelled PICC Powerline (Surecuff) PROCEDURE : 1. Ultrasound-guided puncture of the prescribed vein. 2. Fluoroscopic guidance. 3. Amaral catheter placement 4. Conscious sedation with continuous EKG and oximetry monitoring. The risks, benefits and alternatives to the procedure were explained and verbal and written consent w as obtained. The site was prepped in sterile fashion. Full sterile technique was used, including ca p, mask, sterile gloves and gown and a large sterile sheet. Hand hygiene and 2% chlorhexidine Betadi ne was utilized per protocol for cutaneous antisepsis with appropriate dry time for site. Sterile ge l and sterile probe cover were utilized for ultrasound guidance. The skin and subcutaneous tissues w ere infiltrated with local anesthetic solution. With ultrasound and fluoroscopic guidance a dermatotomy was created in the supraclavicular region. A micropuncture set was used to access to the prescribed vein and serial dilatation was performed to a ccept a 5 Vincentian cuffed PICC catheter. A subcutaneous tunnel was created and in antegrade fashion th e catheter was pulled through the tunnel, cut to the appropriate length and place through the sheath. The catheter was locked with heparin and sutured in place. Conscious sedation was performed with the prescribed dosages and duration as above in the presence of an independent trained radiology nurse to assist in the monitoring of the patient. EKG and oximetry remained stable throughout the procedure. The patient tolerated the procedure well and there were no complications. The patient was sent to post anesthesia recovery in stable condition. CONCLUSION: Uncomplicated tunneled right internal jugular PICC catheter placement as above. Cortez Lopez MD on May 07, 2017 at 17:25 Board Certified Radiologist. This report was verified electronically.
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
[2017-05-07] MEDS: INSULIN DETEMIR 100 UNITS/ML VIAL SQ SCH (20:48)
[2017-05-08 00:07] VITALS: BP 187/85; PULSE 106; RESP 20; TEMP 97.8; O2SAT 95
[2017-05-08] MEDS: PIPERACIL-TAZO 4.5 GM PREMIX 100 ML IV SCH ×2 (00:09→04:57)
[2017-05-08 04:34] VITALS: BP 161/89; PULSE 92; RESP 20; TEMP 97.4; O2SAT 98
[2017-05-08] MEDS: MORPHINE SULFATE 2 MG/ML INJ IV PUSH PRN (04:57)
[2017-05-08 08:00] VITALS: BP 185/95; PULSE 90; RESP 17; TEMP 98.1; O2SAT 95
[2017-05-08] MEDS: INSULIN ASPART 1,000 UNITS/10 ML VIAL SQ SCH (08:00)
[2017-05-08] MEDS: INSULIN ASPART SUPPLEMENTAL SCALE SQ SCH (08:00)
[2017-05-08] MEDS: REMOVE OLD PATCH T-DERMAL SCH (09:00)
[2017-05-08] MEDS: SODIUM CHLORIDE 0.9% FLUSH 10 ML FLUSH IV FLUSH SCH (09:00)
[2017-05-08] MEDS ORDERED: SODIUM CHLORIDE 0.9% FLUSH 10 ML FLUSH IVF SCH (09:00)
[2017-05-08 09:49] LABS: ALB/GLOB RATIO (SPE) 1.23 (1.39-2.23)
[2017-05-08] MEDS: NICOTINE 14 MG/24 HR PATCH T-DERMAL SCH (09:51)
[2017-05-08] MEDS: BACLOFEN 10 MG TAB PO SCH (09:52)
[2017-05-08] MEDS: GABAPENTIN 100 MG CAP PO SCH (09:52)
[2017-05-08] MEDS: LOSARTAN 50 MG TAB PO SCH (09:52)
[2017-05-08] MEDS: DOCUSATE SODIUM 50 MG/SENNA 8.6 MG TAB PO SCH (09:52)
[2017-05-08] MEDS ORDERED: GABA100C4 PO (11:03)
[2017-05-08] MEDS ORDERED: OXYC-395 PO (11:03)
[2017-05-08] MEDS ORDERED: COZA50TA PO (11:03)
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
== END 2017-05-08 12:17 | disposition home health service (06) | DRG 617 ==
LOC: PHED 11:43 → PHEDA 14:51 → N05B 20:41
PROVIDERS: ADMIT Hospitalist; ATTEND Hospitalist
PROC: 0JBR0ZZ Excision of Left Foot Subcutaneous Tissue and Fascia, Open Approach (ICD-10-PCS; 2017-05-04)
PROC: 0Y6S0Z1 Detachment at Left 2nd Toe, High, Open Approach (ICD-10-PCS; principal; 2017-05-04 11:45)
DX: E11.69 Type 2 diabetes mellitus with other specified complication (principal); E11.52 Type 2 diabetes mellitus with diabetic peripheral angiopathy with gangrene; M86.172 Other acute osteomyelitis, left ankle and foot; N17.9 Acute kidney failure, unspecified; N18.4 Chronic kidney disease, stage 4 (severe); E11.21 Type 2 diabetes mellitus with diabetic nephropathy; E11.621 Type 2 diabetes mellitus with foot ulcer; E11.22 Type 2 diabetes mellitus with diabetic chronic kidney disease; E11.40 Type 2 diabetes mellitus with diabetic neuropathy, unspecified; E11.65 Type 2 diabetes mellitus with hyperglycemia; I12.9 Hypertensive chronic kidney disease with stage 1 through stage 4 chronic kidney disease, or unspecified chronic kidney disease; J44.9 Chronic obstructive pulmonary disease, unspecified; L97.529 Non-pressure chronic ulcer of other part of left foot with unspecified severity; B96.89 Other specified bacterial agents as the cause of diseases classified elsewhere; D63.1 Anemia in chronic kidney disease; F17.210 Nicotine dependence, cigarettes, uncomplicated; F43.10 Post-traumatic stress disorder, unspecified; Z79.84 Long term (current) use of oral hypoglycemic drugs; Z86.14 Personal history of Methicillin resistant Staphylococcus aureus infection; Z86.73 Personal history of transient ischemic attack (TIA), and cerebral infarction without residual deficits; Z88.1 Allergy status to other antibiotic agents; Z88.7 Allergy status to serum and vaccine; Z89.511 Acquired absence of right leg below knee
CPT/HCPCS: 36558; 73630; 73660; 73720; 76937; 77001; 80048; 80053; 82948; 83605; 84100; 84165; 85025; 86038; 87015; 87040; 87070; 87077; 87102; 87116; 87186; 87205; 87206; 88305; 88307; 88311; 93005; 93923; 96365; 99152; 99153; A9577; C1751; J0878; J1642; J1815; J2250; J2270; J2543; J3010; J7030

== ENCOUNTER 2017-06-19 14:45 | Emergency (ER) | payer MEDICARE, OTHER ==
[~2017-06-19] VITALS: Ht 177.8 cm; Wt 65.3 kg
[~2017-06-19 14:45] MED LIST changes: +COZA50TA PO; +GABA100C4 PO; -GABA800T PO; +OXYC-395 PO; -PRED20 PO; -VENTAER INH; -b/p med
[2017-06-19 14:46] VITALS: BP 113/68; PULSE 105; RESP 20; TEMP 98.9; O2SAT 97
[2017-06-19] MEDS ORDERED: OXYC-395 PO (15:00)
[2017-06-19] MEDS ORDERED: GABA400C5 PO (15:00)
--- NOTE | 2017-06-19 15:07 | PD ---
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 The patient had this placed 6 weeks ago for a central line to have continuous IV treatments post amputation for an infected foot ulcer. This foot ulcer is now healed, and he is here to have his port removed. States allergy to vancomycin tuberculin duloxetine Past medical history significant for nearsightedness, CVA in 2007, hypertension , hypercholesterolemia, COPD, appendectomy, cholecystectomy, GERD, diabetic. PFSH Past Medical History Hx Anticoagulant Therapy: No Arthritis: Yes (lower back and bilat knees) Asthma: Yes Autoimmune Disease: No Anxiety: No Depression: Yes (PTSD) Heart Rhythm Problems: No Cancer: No Cardiovascular Problems: Yes (HTN) High Cholesterol: Yes Chemotherapy: No Chest Pain: No Congestive Heart Failure: No COPD: Yes Cerebrovascular Accident: Yes (-2007) Diabetes: Yes Patient Takes Glucophage: Yes Diminished Hearing: No Endocrine: Yes Gastrointestinal Disorders: Yes GERD: No Genitourinary: No Headaches: Yes Hiatal Hernia: No Hypertension: Yes Immune Disorder: No Implanted Vascular Access Dvce: No Musculoskeletal: Yes Neurologic: Yes Psychiatric: Yes Reproductive: No Respiratory: No Immunizations Current: No Migraines: No Seizures: No Sleep Apnea: No Thyroid Disease: No Ulcer: No ?: Not Past Surgical History Abdominal Surgery: Yes (gallbladder and appendectomy) Appendectomy: Yes Cardiac Surgery: No Cholecystectomy: Yes Ear Surgery: No Endocrine Surgery: No Eye Surgery: No Genitourinary Surgery: No Gynecologic Surgery: No Neurologic Surgery: No Oral Surgery: Yes (extraction) Thoracic Surgery: No Other Surgery: Yes (PILONIDAL CYST, BKA R SIDE) Social History Alcohol Use: No Tobacco Use: Yes (1+ PPD) Substance Use: No Allergies-Medications (Allergen,Severity, Reaction): Coded Allergies: duloxetine (Verified Allergy, Severe, Urinary Freq (Inc/Dec), 06/19/17) vancomycin (Verified Adverse Reaction, Severe, Swelling, 06/19/17) KIDNEYS SHUT DOWN tuberculin, purified protein deriva (Verified Adverse Reaction, Intermediate, OTHER, 06/19/17) + PPD, HAS GONE THRU MEDICATION REGIMEN SEV TIMES, LAST WAS IN 2012. *MDRO Multi-Drug Resistant Organism (Verified Adverse Reaction, Unknown, ) MRSA (leg wound) 12/2014 Reported Meds & Prescriptions Reported Meds & Active Scripts Active Cozaar (Losartan Potassium) 50 Mg Tab 50 Mg PO DAILY Reported Oxycodone (Oxycodone HCl) 10 Mg Tab 10 Mg PO BID Gabapentin 400 Mg Cap 400 Cap PO TID Baclofen 10 Mg Tab 10 Mg PO TID Glipizide 5 Mg Tab 5 Mg PO BIDAC Take 30 minutes before a meal Metformin (Metformin HCl) 1,000 Mg Tab 500 Mg PO BIDPC Review of Systems Except as stated in HPI: all other systems reviewed are Neg Physical Exam Narrative GENERAL: SKIN: Warm and dry. HEAD: Atraumatic. Normocephalic. EYES: Pupils equal and round. No scleral icterus. No injection or drainage. ENT: No nasal bleeding or discharge. Mucous membranes pink and moist. NECK: Trachea midline. No JVD. Right subclavian Amaral port access in place, well covered, without any evidence of infection externally. Nontender to palpation CARDIOVASCULAR: Regular rate and rhythm. RESPIRATORY: No accessory muscle use. Clear to auscultation. Breath sounds equal bilaterally. GASTROINTESTINAL: Abdomen soft, non-tender, nondistended. MUSCULOSKELETAL: Extremities without clubbing, cyanosis, or edema. No obvious deformities. NEUROLOGICAL: Awake and alert. No obvious cranial nerve deficits. Motor grossly within normal limits. Five out of 5 muscle strength in the arms and legs. Normal speech. PSYCHIATRIC: Appropriate mood and affect; insight and judgment normal. Data Data Last Documented VS Vital Signs Date Time Temp Pulse Resp B/P (MAP) Pulse Ox O2 Delivery O2 Flow Rate FiO2 06/19/17 14:46 98.9 105 20 113/68 (83) 97 MDM Medical Decision Making Medical Screen Exam Complete: Yes Emergency Medical Condition: Yes Medical Record Reviewed: Yes Differential Diagnosis Not applicable Narrative Course After thorough examination, the patient was advised that this is a routine removal. And that if this does not need to happen in the emergency department. Generally this is performed by a surgeons office follow-up or sometimes through another specialist to follows up with them. This type of central access are not routinely sent to the emergency department for removal. Diagnosis Primary Impression: Right port access for routine removal Referrals: Lam Bangura MD For referral to a specialist to remove this central access Disposition: 01 DISCHARGE HOME Condition: Stable Clayton Manzano MD June 19, 2017 15:07
== END 2017-06-19 15:32 | disposition home or self-care (01) ==
LOC: PHED 14:45
DX: Z45.2 Encounter for adjustment and management of vascular access device (principal); I10 Essential (primary) hypertension; E11.9 Type 2 diabetes mellitus without complications; F43.10 Post-traumatic stress disorder, unspecified; E78.00 Pure hypercholesterolemia, unspecified; J44.9 Chronic obstructive pulmonary disease, unspecified; M19.90 Unspecified osteoarthritis, unspecified site; Z86.73 Personal history of transient ischemic attack (TIA), and cerebral infarction without residual deficits; Z79.899 Other long term (current) drug therapy
CPT/HCPCS: 99282

== ENCOUNTER 2017-06-22 15:53 | Emergency (ER) | payer MEDICARE, OTHER ==
[~2017-06-22] VITALS: Ht 175.3 cm; Wt 62.5 kg
[~2017-06-22 15:53] MED LIST changes: -ALBUAER3 INH; -GABA100C4 PO; +GABA400C5 PO
[2017-06-22 15:56] VITALS: BP 167/67; PULSE 98; RESP 14; TEMP 98; O2SAT 99
--- NOTE | 2017-06-22 16:07 | PD ---
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 Patient was seen and evaluated here 3 days ago for the same thing. He requested that it be removed at that time and was advised that this is not an emergent need to have his port removed and to follow-up outpatient. 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 He denies any chest pain or tightness. No difficulty breathing. It is not painful or draining. There is no other symptoms to report at this time. History Past Medical Histgory Medical History: Denies Significant Hx Hx Cancer: No Hx Chemotherapy: No Social History Alcohol Use: No Tobacco Use: Yes (1+ PPD) Allergies-Medications (Allergen,Severity, Reaction): Coded Allergies: duloxetine (Verified Allergy, Severe, Urinary Freq (Inc/Dec), 06/19/17) vancomycin (Verified Adverse Reaction, Severe, Swelling, 06/19/17) KIDNEYS SHUT DOWN tuberculin, purified protein deriva (Verified Adverse Reaction, Intermediate, OTHER, 06/19/17) + PPD, HAS GONE THRU MEDICATION REGIMEN SEV TIMES, LAST WAS IN 2012. *MDRO Multi-Drug Resistant Organism (Verified Adverse Reaction, Unknown, ) MRSA (leg wound) 12/2014 Reported Meds & Prescriptions Reported Meds & Active Scripts Active Cozaar (Losartan Potassium) 50 Mg Tab 50 Mg PO DAILY Reported Oxycodone (Oxycodone HCl) 10 Mg Tab 10 Mg PO BID Gabapentin 400 Mg Cap 400 Cap PO TID Baclofen 10 Mg Tab 10 Mg PO TID Glipizide 5 Mg Tab 5 Mg PO BIDAC Take 30 minutes before a meal Metformin (Metformin HCl) 1,000 Mg Tab 500 Mg PO BIDPC Review of Systems Except as stated in HPI: all other systems reviewed are Neg Physical Exam Narrative GENERAL: Thin male patient, sitting up in bed in no acute distress SKIN: Focused skin assessment warm/dry. HEAD: Atraumatic. Normocephalic. EYES: Pupils equal and round. No scleral icterus. No injection or drainage. ENT: No nasal bleeding or discharge. Mucous membranes pink and moist. NECK: Trachea midline. No JVD. CARDIOVASCULAR: Elevated rate and rhythm. RESPIRATORY: No accessory muscle use. Right subclavian catheter in place. Dressing is intact. No erythema or edema. No drainage from the site. GASTROINTESTINAL: Abdomen nondistended. MUSCULOSKELETAL: No obvious deformities. No clubbing. No cyanosis. No edema. NEUROLOGICAL: Awake and alert. No obvious cranial nerve deficits. Motor grossly within normal limits. Normal speech. Left BKA Data Data Last Documented VS Vital Signs Date Time Temp Pulse Resp B/P (MAP) Pulse Ox O2 Delivery O2 Flow Rate FiO2 06/22/17 15:56 98.0 98 14 167/67 (100) 99 MDM Medical Screen Exam Complete: Yes Emergency Medical Condition: No Differential Diagnosis Catheter removal request Narrative Course 51-year-old male presents emergency department depending that we reviewed his subclavian [id number] catheter. Patient has no current complaints associated with the catheter. He tells me he is no longer getting treatment that he needed the catheter for. He appears well. He was seen and evaluated for this 3 days ago and advised this is an outpatient procedure. I advised him that this is not changed and it is to be done outpatient as we are an emergency department. At this time there are no urgent or emergent needs medical intervention identified. A medical screening exam was performed: At the time of evaluation the presenting medical condition was determined not to be of an emergent nature. The patient was given the option of receiving additional care, but declined. Patient was given options for additional community resources from which to obtain care. The Patient Has Been advised to seek medical attention for their presenting complaint. The patient has been advised to return to the ER at any time if an emergent condition develops. Primary Impression: Encounter for medical screening examination Condition: Stable Cristal Mckinnon June 22, 2017 16:07
== END 2017-06-22 16:16 | disposition left against medical advice (07) ==
LOC: NEPC 15:53
DX: Z43.8 Encounter for attention to other artificial openings (principal)
CPT/HCPCS: 99281

== ENCOUNTER 2017-06-25 12:16 | Day surgery (SDC) | payer MEDICARE, OTHER ==
[2017-06-25 12:40] VITALS: BP 141/89; PULSE 95; RESP 20; TEMP 98.6; O2SAT 96
[2017-06-25 13:40] VITALS: BP 121/78; PULSE 90; RESP 20; TEMP 98.5; O2SAT 93
--- NOTE | 2017-06-25 13:43 | PD.RAD ---
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
--- NOTE | 2017-06-25 13:56 | RADRPT ---
EXAM DATE/TIME: 06/25/2017 00:00 [facility] COMPARISON: No previous studies available for comparison. INDICATIONS : Patient presents with tunneled central jermaine catheter, no longer needed for antibiotics. MEDICAL HISTORY : Diabetes melitus History of osteomyelitis requiring right below the knee amputation. Amputation of the left lower ext remity fourth digit. History of CVA History of hyperlipidemia Tobacco use. COPD SURGICAL HISTORY : Right BKA Left foot fourth digit amputation. Appendectomy in Cholecystectomy Pilonidal cyst drainage ENCOUNTER: Initial ACUITY: 1 week PAIN SCORE: 0/10 IMAGE SERIES: Zero PROCEDURE : 1. tunneled PICC removal. The risks, benefits and alternatives to the procedure were explained and verbal and written consent w as obtained. The site was prepped in sterile fashion. Full sterile technique was used, including ca p, mask, sterile gloves and gown and a large sterile sheet. Hand hygiene and 2% chlorhexidine and/or betadine/alcohol prep was utilized per protocol for cutaneous antisepsis. The skin and subcutaneous tissues were infiltrated with local anesthetic solution. The tract was anesthetized with 1% Lidocaine using. The takeoff appear to be midway into the subcuta neous tract. Therefore, a small incision was made over the cuff with an 11 blade scalpel. Subcutaneou s tissues were bluntly dissected down to the catheter. The distal end was removed from the central ve nous system. The cuff was bluntly dissected from the subcutaneous tissues and the catheter removed. A single 3-0 Vicryl stitch was used to appose the skin edges of the dermatotomy. Manual pressure was applied to the venotomy site until hemostasis was obtained. Sterile dressing was applied. The patient tolerated the procedure well and there were no complications. CONCLUSION: Uncomplicated tunneled PICC line removal. Jonah Mays MD on June 25, 2017 at 13:52 Board Certified Radiologist. This report was verified electronically.
== END 2017-06-25 14:00 | disposition home or self-care (01) ==
LOC: HROP 12:16 → HRIP 12:22 → HROP 14:00
PROVIDERS: ATTEND Internal Medicine Infectious Disease
DX: Z45.2 Encounter for adjustment and management of vascular access device (principal); L97.529 Non-pressure chronic ulcer of other part of left foot with unspecified severity; E11.621 Type 2 diabetes mellitus with foot ulcer; E78.5 Hyperlipidemia, unspecified; J44.9 Chronic obstructive pulmonary disease, unspecified; Z86.73 Personal history of transient ischemic attack (TIA), and cerebral infarction without residual deficits; Z89.511 Acquired absence of right leg below knee
CPT/HCPCS: 36589